=== PATIENT | female | born 1970 | race Caucasian/White ===

== ENCOUNTER → 2022-10-17 09:44 | Outpatient (BNVA) | payer MEDICARE, MEDICAID, SELFPAY | PROVIDERS: PCP Nurse Practitioner Family; Visit Provider Nurse Practitioner Family | DX: G43.109 Migraine with aura, not intractable, without status migrainosus (principal); G43.119 Migraine with aura, intractable, without status migrainosus; D49.7 Neoplasm of unspecified behavior of endocrine glands and other parts of nervous system | CPT/HCPCS: 99202 ==

== ENCOUNTER → 2022-12-27 10:25 | Outpatient (BNVA) | payer MEDICARE, MEDICAID, SELFPAY | PROVIDERS: PCP Nurse Practitioner Family; Visit Provider Nurse Practitioner Family | DX: G43.109 Migraine with aura, not intractable, without status migrainosus (principal) | CPT/HCPCS: 99212 ==

== ENCOUNTER → 2023-02-04 09:45 | Outpatient (BNVA) | payer MEDICARE, MEDICAID, SELFPAY | PROVIDERS: PCP Nurse Practitioner Family; Visit Provider Psychiatry & Neurology Neurology | DX: G43.709 Chronic migraine without aura, not intractable, without status migrainosus (principal) | CPT/HCPCS: 64615; 99211; J0585 ==

== ENCOUNTER 2023-06-04 14:05 | Outpatient (AMB) | payer MEDICARE, MEDICAID, SELFPAY ==
--- NOTE | 2023-06-04 13:59 | MHC.OFFVIS ---
Intake Vital Signs 06/04/23 14:00 Height 5 ft 2 in Weight 140 lb 2 oz BMI 25.6 BP 120/78 Blood Pressure Location Lt brachial Position Sitting Respiration 16 Pulse 67 Pulse Source Pulse Oximeter Pulse Oximetry (%) 98 Intake Visit Reasons: Botox-confirmed Intake Note: Patient presents to office for Botox injections. Allergies cephalexin [From Keflex] Allergy (Intermediate, Verified 06/04/23 13:59) Fever etodolac Allergy (Unknown, Verified 06/04/23 13:59) Unknown iodine Allergy (Unknown, Verified 06/04/23 13:59) Unknown povidone-iodine [From Betadine] Allergy (Unknown, Verified 06/04/23 13:59) Rash Medication List - Last Reconciled 06/04/23 by Lizzette Diaz MD jjdcwnc-ovqkuviillgip-umfpuopk 250-250-65 mg (Excedrin Migraine) 2 tabs PO Q6H PRN ksihnfwqdm-xvcvxht-xmljvioa 50-325-40 mg 2 caps PO Q4H PRN cholecalciferol (vitamin D3) 250 mcg PO DAILY diphenoxylate-atropine 2.5-0.025 mg (Lomotil) 1 tab PO QID PRN famotidine 20 mg PO DAILY fluoxetine 20 mg PO DAILY ibuprofen 800 mg PO TID PRN naproxen sodium 440 mg (2 x 220 mg) PO Q12H PRN 30 days onabotulinumtoxinA (Botox) 155 units IM ONCE 12 weeks riboflavin (vitamin B2) 400 mg PO DAILY 30 days valacyclovir 500 mg PO DAILY zolpidem 5 mg PO BEDTIME PRN HPI HPI Comments History of Present Illness Details ? 53y/o female comes for treatment of migraines with botox.He rlast botox tretament was [address] Greco.Prior to him she was seeing Dr. Lipscomb. ??? Most frequent reported adverse reactions following injection of botox for chronic migraine include neck pain (9%), headache(5%), eyelid ptosis(4%), migraine(4%), muscular weakness(4%), musculuskeletal stiffness(4%), bronchitis(3%), injection site pain (3%), musculoskeletal pain(3%), myalgia(3%), facial paresis(2%), HTN(2%) and muscle spasms(2%) were discussed in detail. ??? Botulinum toxin typeA 200units Lot no [id number] expiration sep 2025 was diluted with 4 cc of normal saline . ??? Muscles injected- ??? Frontalis 4 sites ??? Procerus 1 site ??? Customer Service Analyst- 2 sites ??? Temporalis- 8 sites ??? Occipitalis- 6 sites ??? Cervical paraspinals- 4 sites ??? Trapezius- 6 sites- ??? 5 units each in 31 site ??? Total use- 155units ??? Discarded-45units [facility] Medical History Chronic migraine without aura Hyperprolactinemia IBS (irritable bowel syndrome) Ovarian cyst Syncope Herniated lumbar disc without myelopathy Palpitations Fibromyalgia Depression Herpetic gingivostomatitis GERD (gastroesophageal reflux disease) Surgical History H/O laparoscopy History of section Family History Father Thyroid cancer Hypertension Glaucoma Mother Endometrial cancer Kidney stones Hypertension Fibromyalgia Sister Kidney stones Acute Crohn's disease Paternal Grandmother Heart disease Maternal Grandmother Heart disease Diabetes Social History Alcohol intake: never Patient Tobacco Use Status: Never used Tobacco Physical Exam Vital Signs: Last Vital Signs Pulse 67 06/04/23 14:00 Resp 16 06/04/23 14:00 BP 120/78 06/04/23 14:00 Pulse Ox 98 06/04/23 14:00 BMI result Body Mass Index 25.6 Const General: cooperative and no acute distress Orientation/consciousness: patient oriented x3 HEENT Head: Yes normocephalic Resp Effort & Inspection: normal respiratory effort and able to speak in complete sentences Neuro General: patient oriented x3, gait normal and CN's II-XI intact bilaterally Cognition (Neuro): normal cognition Motor exam (neuro): 5/5 motor strength present throughout Office Procedures Botulinum toxin Injection 88949 - Migraine Procedure code (CPT) selection complete Office Meds onabotulinumtoxinA 200 unit solution for injection Performing Provider: Lizzette Diaz MD [place] [facility] [place] [facility] Administered by: Lizzette Diaz MD on 06/04/23 15:08 Dose Route Admin Location Dispensed Lot Number Expiration Date [facility] Instructional Manager 200 unit subcut 200 units [id number] 09/19/25 9288-8248-76 ALLERGAN/BOTOX Comments: see hpi Assessment & Plan Assessment & Plan (1) Chronic migraine without aura: Code(s): G43.709 - Chronic migraine without aura, not intractable, without status migrainosus Plan Patient tolerated the procedure well she will call with any side effects Orders: Orders AMB Botulinum toxin Injection - Patient Supplied Today G43.709 - Chronic migraine without aura, not intractable, without status migrainosus Coding Level of Care Code Est Pt Level 1 (76247) Diagnoses Chronic migraine without aura G43.709 CPT Codes Botox Injection - Botox 3: 64745 - Migraine ([id number])
[2023-06-04 14:00] VITALS: BP 120/78; PULSE 67; RESP 16; O2SAT 98; BMI 25.6
== END 2023-06-04 15:03 | disposition home or self-care (01) ==
PROVIDERS: PCP Nurse Practitioner Family; Visit Provider Psychiatry & Neurology Neurology
DX: G43.709 Chronic migraine without aura, not intractable, without status migrainosus (principal)
CPT/HCPCS: 64615

== ENCOUNTER → 2023-06-04 14:05 | Outpatient (BNVA) | payer MEDICARE, MEDICAID, SELFPAY | PROVIDERS: PCP Nurse Practitioner Family; Visit Provider Psychiatry & Neurology Neurology | DX: G43.709 Chronic migraine without aura, not intractable, without status migrainosus (principal); M51.26 Other intervertebral disc displacement, lumbar region; M79.7 Fibromyalgia | CPT/HCPCS: 64615; 99211; J0585 ==

== ENCOUNTER 2023-09-16 12:37 | Outpatient (AMB) | payer MEDICARE, MEDICAID, SELFPAY ==
--- NOTE | 2023-09-16 12:39 | MHC.OFFVIS ---
Intake Vital Signs 09/16/23 12:43 Height 5 ft 2 in Weight 134 lb 7 oz BMI 24.6 BP 124/70 Blood Pressure Location Rt brachial Position Sitting Respiration 16 Pulse 65 Pulse Source Pulse Oximeter Pulse Oximetry (%) 98 Oxygen Delivery Method Room Air Intake Visit Reasons: Botox-LVM Intake Note: Pt presents to the office for Botox injections. Painting Worker Required: No Allergies cephalexin [From Keflex] Allergy (Intermediate, Verified 09/16/23 12:42) Fever etodolac Allergy (Unknown, Verified 09/16/23 12:42) Unknown iodine Allergy (Unknown, Verified 09/16/23 12:42) Unknown povidone-iodine [From Betadine] Allergy (Unknown, Verified 09/16/23 12:42) Rash Medication List - Last Reconciled 09/16/23 by Lizzette Diaz MD tcbiyqc-vspcxdtfyvhqs-puqlvcjk 250-250-65 mg (Excedrin Migraine) 2 tabs PO Q6H PRN wqtdcqhdnp-uttzncc-kbtcootb 50-325-40 mg 1-2 caps q 8hrs as needed for headaches orally PRN; do not exceed 3 doses per 24 hrs cholecalciferol (vitamin D3) 250 mcg PO DAILY diphenoxylate-atropine 2.5-0.025 mg (Lomotil) 1 tab PO QID PRN famotidine 20 mg PO DAILY fluoxetine 20 mg PO DAILY ibuprofen 800 mg PO TID PRN naproxen sodium 440 mg (2 x 220 mg) PO Q12H PRN 30 days onabotulinumtoxinA (Botox) 155 units IM ONCE 12 weeks riboflavin (vitamin B2) 400 mg PO DAILY 30 days valacyclovir 500 mg PO DAILY zolpidem 5 mg PO BEDTIME PRN HPI HPI Comments History of Present Illness Details ? 53y/o female comes for treatment of migraines with botox.He rlast botox tretament was [address] Greco.Prior to him she was seeing Dr. Lipscomb .How many migraine days prior to botox- 25-30 days How long do the migraines last 1-2 days Intensity of migraine 8-10/10 ER visits related to migraine 2-3 Effectiveness of botox from last two treatment(s) How many migraine days since receiving treatment:3-5 Change? in intensity of migraine?decreased Change in frequency of migraine?decreased Change in use of acute medication for migraine?decreased Change in quality of life?better ER visits related to migraine?0 Have at least three months elapsed since last treatment (Last botox date - frequency of injections)06/04/23 ??? Most frequent reported adverse reactions following injection of botox for chronic migraine include neck pain (9%), headache(5%), eyelid ptosis(4%), migraine(4%), muscular weakness(4%), musculuskeletal stiffness(4%), bronchitis(3%), injection site pain (3%), musculoskeletal pain(3%), myalgia(3%), facial paresis(2%), HTN(2%) and muscle spasms(2%) were discussed in detail. ??? Botulinum toxin typeA 200units Lot no [id number] expiration December 2025 was diluted with 4 cc of normal saline . ??? Muscles injected- ??? Frontalis 4 sites ??? Procerus 1 site ??? Gravedigger- 2 sites ??? Temporalis- 8 sites ??? Occipitalis- 6 sites ??? Cervical paraspinals- 4 sites ??? Trapezius- 6 sites- ??? 5 units each in 31 site ??? Total use- 155units ??? Discarded-45units [facility] Medical History Chronic migraine without aura Hyperprolactinemia IBS (irritable bowel syndrome) Ovarian cyst Syncope Herniated lumbar disc without myelopathy Palpitations Fibromyalgia Depression Herpetic gingivostomatitis GERD (gastroesophageal reflux disease) Surgical History H/O laparoscopy History of section Family History Father Thyroid cancer Hypertension Glaucoma Mother Endometrial cancer Kidney stones Hypertension Fibromyalgia Sister Kidney stones Acute Crohn's disease Paternal Grandmother Heart disease Maternal Grandmother Heart disease Diabetes Social History Alcohol intake: never Patient Tobacco Use Status: Never used Tobacco Physical Exam Vital Signs: Last Vital Signs Pulse 65 09/16/23 12:43 Resp 16 09/16/23 12:43 BP 124/70 09/16/23 12:43 Pulse Ox 98 09/16/23 12:43 Oxygen Delivery Method Room Air 09/16/23 12:43 BMI result Body Mass Index 24.6 Const General: cooperative and no acute distress Orientation/consciousness: patient oriented x3 HEENT Head: Yes normocephalic Resp Effort & Inspection: normal respiratory effort and able to speak in complete sentences Neuro General: patient oriented x3, gait normal and CN's II-XI intact bilaterally Cognition (Neuro): normal cognition Motor exam (neuro): 5/5 motor strength present throughout Office Procedures Botulinum toxin Injection 77856 - Migraine Procedure code (CPT) selection complete Office Meds onabotulinumtoxinA 200 unit solution for injection Performing Provider: Lizzette Diaz MD Performing Location[place] [facility] [place] [facility] Administered by: Lizzette Diaz MD on 09/16/23 15:40 Dose Route Admin Location Dispensed Lot Number Expiration Date [facility] Supply Assistant 155 unit IM 200 units [id number] 12/17/25 0190-0739-23 ALLERGAN/BOTOX Comments: see HPI Assessment & Plan Assessment & Plan (1) Chronic migraine without aura: Code(s): G43.709 - Chronic migraine without aura, not intractable, without status migrainosus Plan Patient tolerated the procedure well she will call with any side effects Orders: Orders AMB Botulinum toxin Injection Today G43.709 - Chronic migraine without aura, not intractable, without status migrainosus Medications: Changed From fmfdvqokqk-hibemnt-vupwgcda 50-325-40 mg do not exceed 3 doses per 24 hrs 2 caps PO Q4H PRN To elfpmqilin-gwlbudn-kspfwrsk 50-325-40 mg 1-2 caps q 8hrs as needed for headaches orally PRN; do not exceed 3 doses per 24 hrs 15 caps 3RF migraine headache Coding Level of Care Code Est Pt Level 1 (18645) Diagnoses Chronic migraine without aura G43.709 CPT Codes Botox Injection - Botox 3: 67691 - Migraine ([id number])
[2023-09-16 12:43] VITALS: BP 124/70; PULSE 65; RESP 16; O2SAT 98; BMI 24.6
== END 2023-09-16 13:49 | disposition home or self-care (01) ==
PROVIDERS: PCP Nurse Practitioner Family; Visit Provider Psychiatry & Neurology Neurology
DX: G43.709 Chronic migraine without aura, not intractable, without status migrainosus (principal)
CPT/HCPCS: 64615

== ENCOUNTER → 2023-09-16 12:37 | Outpatient (BNVA) | payer MEDICARE, MEDICAID, SELFPAY | PROVIDERS: PCP Nurse Practitioner Family; Visit Provider Psychiatry & Neurology Neurology | DX: G43.709 Chronic migraine without aura, not intractable, without status migrainosus (principal) | CPT/HCPCS: 64615; 99211; J0585 ==

== ENCOUNTER → 2023-10-09 09:12 | Outpatient (BNVA) | payer MEDICARE, MEDICAID, SELFPAY | PROVIDERS: PCP Nurse Practitioner Family; Visit Provider Nurse Practitioner Family ==

== ENCOUNTER 2023-10-09 09:19 | Outpatient (AMB) | payer MEDICARE, MEDICAID, SELFPAY ==
--- NOTE | 2023-10-09 09:12 | MHC.OFFVIS ---
Intake Intake Visit Reasons: 3m follow up migraine - CONF Intake Note: Patient presents for 3 month follow up migraines Allergies cephalexin [From Keflex] Allergy (Intermediate, Verified 09/16/23 12:42) Fever etodolac Allergy (Unknown, Verified 09/16/23 12:42) Unknown iodine Allergy (Unknown, Verified 09/16/23 12:42) Unknown povidone-iodine [From Betadine] Allergy (Unknown, Verified 09/16/23 12:42) Rash HPI HPI Comments History of Present Illness Details 53-yr-old female presents for f/u televideo visit via [employer]. Pt denies any significant interval medical changes. Pt reports that the Botox is helpful for her migraine. However, at the end of her Botox cycle, she will have breakthrough migraine, which can last 4-5 days, some migraines are a/w visual aura . She does have milder breakthrough headaches at least 4 times per month not a/w aura. She is currently using Fiorinal w/wo alternating w/ Excedrin, which may help her to function, and sometimes just has to ride it out and has to lay down in a dark room. Baseline migraine characteristics: Aura- at times, Visual lights Mod-Severe, Left or right sided a/w photophobia, phonophobia, osmophobia, nausea, allodynia, fatigue PFSH Medical History Chronic migraine without aura Hyperprolactinemia IBS (irritable bowel syndrome) Ovarian cyst Syncope Herniated lumbar disc without myelopathy Palpitations Fibromyalgia Depression Herpetic gingivostomatitis GERD (gastroesophageal reflux disease) Surgical History H/O laparoscopy History of section Family History Father Thyroid cancer Hypertension Glaucoma Mother Endometrial cancer Kidney stones Hypertension Fibromyalgia Sister Kidney stones Acute Crohn's disease Paternal Grandmother Heart disease Maternal Grandmother Heart disease Diabetes Social History Alcohol intake: never Patient Tobacco Use Status: Never used Tobacco Physical Exam Const General: cooperative and no acute distress Orientation/consciousness: patient oriented x3 Resp Effort & Inspection: normal respiratory effort and able to speak in complete sentences Neuro General: patient oriented x3 Cognition (Neuro): normal cognition Psych Appearance: grossly normal Mental Status: mental status grossly normal Speech and movement: Normal speech and movement present Affect: normal affect Attitude: cooperative Assessment & Plan Assessment & Plan (1) Chronic migraine without aura: Code(s): G43.709 - Chronic migraine without aura, not intractable, without status migrainosus (2) Migraine with aura, intractable, without status migrainosus: Code(s): G43.119 - Migraine with aura, intractable, without status migrainosus Plan For overall headache management: Continue to optimize good self-care, including but not limited to maintaining a healthy diet, adequate fluid intake, adequate sleep, and engaging in regular physical activity. For headache triggers: Track headaches, especially after any treatment regimen changes. Light sensitivity tips: Continue green light therapy.. ? For acute headache treatment: Start Nurtec ODT 75mg qd prn. Take Nurtec ODT 75mg qod starting 10 days prior to next Botox injection. Advised to hold Fiorinal to be able to fully assess Nurtec tolerenace and effectiveness, if ineffective after several trials, may resume Fiorinal and Excedrin sparingly. Previous acute migraine medication trials: Sumatriptan- caused brain fog, Zolmitriptan- caused spaciness. Naratriptan 2.5 mg prn- caused her to feel weird. Acute migraine medication contraindications: None at this time ? For headache prevention medication: Continue Botox 155 units IM q 3 months for chronic migraine. May try taking Naproxen 440mg q 12hrs or Ibuprofen 600mg tid prn during last 1-2 weeks of Botox inj cycle. Previous migraine prevention medication trials: Amitriptyline- not tolerated. Propranolol- not tolerated. topiramate- not tolerated. Aimovig- had some effect but had end of cycle wearing off- did take w/ Botox- was not more effective together. Riboflavin 400mg qam- ineffective Migraine prevention medication contraindications: None at this time. f/u in 3 months or sooner prn. Medications: New rimegepant (Nurtec ODT) 75 mg PO ONCE 30 days PRN 16 tabs 3RF migraine headache MDD 1 tab Telehealth Telehealth Location of provider rendering services: practice address Location of patient: address on file Patient Identification confirmed using: Name, : Yes Telehealth method: voice only Patient verbally consented to treatment: Yes Patient verbally consented to billing insurance company: Yes Patient informed of any privacy concerns related to visit: Yes Minutes spent on Phone/Video with Pt.: 21 Coding Level of Care Code Tele Est Pt Level 4 (02434) Diagnoses Chronic migraine without aura G43.709 Migraine with aura, intractable, without status migrainosus G43.119
--- OUTSIDE RECORDS SUMMARY | 2023-10-09 09:13 | XMS_ITS | Continuity of Care Document ---
Author Name Unknown Organization [facility] Address [address] [place] [address]- Care Team Providers Care Government Relations Director Name Role Phone Not on Staff, PCP Primary Care Physician Unavail able Encounter [facility] [place] Date(s): 06/14/23 - 07/14/23 [facility] [address], [place] [address] Attending Physician: Ashkan Meza Admitting Physician: Ashkan Meza Referring Physician: trAshkan Allergies, Adverse Reactions, Alerts Substance Reaction Severity Status iodine topical Active Keflex Rash Persistent Severe Active Immunizations Given and Recorded Vaccine Date Status Refusal Reason Influenza Virus Vaccine (oldterm) 03/29/20 Recorde d zoster vaccine, inactivated 03/29/20 Recorded tetanus/diphtheria/pertussis, acel(Tdap) 04/02/11 Given Medications Famotidine 0 Refills, Maintenance, 11/18/14 9:49:50 Start Date: 11/18/14 Status: Ordered Fiorinal 325 mg-50 mg-40 mg oral capsule 2 capsule, By Mouth, Every 6 hours, 0 Refills, Maintenance, 11/18/14 9:50:44 Start Date: 11/18/14 Status: Ordered Lomotil Tablet By Mouth, 4 times a day, Refills 0, Maintenance, 12/16/18 10:11:01 EDT Start Date: 12/16/18 Status: Ordered Vitamin D 99034 iu oral capsule 50,000 International_Units, By Mouth, Daily, Refills 0, Maintenance, 06/15/21 8:15:00 EDT, Partial fill upon patient request if the prescription is for a schedule II opioid drug. Start Date: 06/15/21 Status: Ordered Problem List Condition Confirmation Course Effective Dates Status Health St atus Informant Benign tumor of pituitary gland Confirmed Active Headache, migraine Confirmed Active Confirmed Active Confirmed Active , c/s 2, 1 Confirmed Active Social History Social History Type Response Smoking Status Never smoker entered on: 11/18/14 Sex Patient Care team information Care Team Personnel Name: Not on Staff, PCP Position: [facility] Physician (General Medicine) Member Role: PCP Name: Naomi Vo MA Position: [facility] Outreach Member Role: Lifetime Consulting Physician Care Team Related Persons Name: JAYY WEATHERS Address: [place] [address] Name: BAYRON WEATHERS Address: [address] [place] [address] Name: BAYRON WEATHERS Address: [address] [place] [address] Name: CHINA NGUYEN Address: home [address] [place], [place] Name: AURA MATTHEWS Address: [place] [address] [place], [place]
== END 2023-10-09 10:00 ==
PROVIDERS: PCP Nurse Practitioner Family; Visit Provider Nurse Practitioner Family
DX: G43.709 Chronic migraine without aura, not intractable, without status migrainosus (principal); G43.119 Migraine with aura, intractable, without status migrainosus
CPT/HCPCS: 99443

== ENCOUNTER 2023-12-26 07:53 | Outpatient (AMB) | payer MEDICARE, MEDICAID, SELFPAY ==
--- NOTE | 2023-12-26 07:59 | MHC.OFFVIS ---
Vital Signs 12/26/23 08:01 Height 5 ft 2 in Weight 132 lb BMI 24.1 BP 112/58 L Blood Pressure Location Rt brachial Position Sitting Respiration 16 Pulse 60 Pulse Source Pulse Oximeter Pulse Oximetry (%) 100 Oxygen Delivery Method Room Air Intake Visit Reasons: Botox - Confirmed Intake Note: Pt presents to the office for Botox injections. Telecommunications Facility Examiner Required: No Allergies cephalexin [From Keflex] Allergy (Intermediate, Verified 12/26/23 08:00) Fever etodolac Allergy (Unknown, Verified 12/26/23 08:00) Unknown iodine Allergy (Unknown, Verified 12/26/23 08:00) Unknown povidone-iodine [From Betadine] Allergy (Unknown, Verified 12/26/23 08:00) Rash Medication List - Last Reconciled 12/26/23 by Lizzette Diaz MD kgbfjji-yndnajsruhaom-vuxxsqtj 250-250-65 mg (Excedrin Migraine) 2 tabs PO Q6H PRN fhceeoznqr-qfmhtfk-priwnfzn 50-325-40 mg 1-2 caps q 8hrs as needed for headaches orally PRN; do not exceed 3 doses per 24 hrs cholecalciferol (vitamin D3) 250 mcg PO DAILY diphenoxylate-atropine 2.5-0.025 mg (Lomotil) 1 tab PO QID PRN famotidine 20 mg PO DAILY fluoxetine 20 mg PO DAILY ibuprofen 800 mg PO TID PRN naproxen sodium 440 mg (2 x 220 mg) PO Q12H PRN 30 days onabotulinumtoxinA (Botox) 155 units IM ONCE 12 weeks riboflavin (vitamin B2) 400 mg PO DAILY 30 days rimegepant (Nurtec ODT) 75 mg PO ONCE PRN 30 days MDD 1 tab valacyclovir 500 mg PO DAILY zolpidem 5 mg PO BEDTIME PRN HPI Comments Details: ? 53y/o female comes for treatment of migraines with botox. .How many migraine days prior to botox- 25-30 days How long do the migraines last 1-2 days Intensity of migraine 8-05/28 ER visits related to migraine 2-3 Effectiveness of botox from last two treatment(s) How many migraine days since receiving treatment:3-5 Change? in intensity of migraine?decreased Change in frequency of migraine?decreased Change in use of acute medication for migraine?decreased Change in quality of life?better ER visits related to migraine?0 Have at least three months elapsed since last treatment (Last botox date - frequency of injections)09/11 ??? Most frequent reported adverse reactions following injection of botox for chronic migraine include neck pain (9%), headache(5%), eyelid ptosis(4%), migraine(4%), muscular weakness(4%), musculuskeletal stiffness(4%), bronchitis(3%), injection site pain (3%), musculoskeletal pain(3%), myalgia(3%), facial paresis(2%), HTN(2%) and muscle spasms(2%) were discussed in detail. ??? Botulinum toxin typeA 200units Lot no [id number] expiration January 2026 was diluted with 4 cc of normal saline . ??? Muscles injected- ??? Frontalis 4 sites ??? Procerus 1 site ??? Supervisor [employer]- 2 sites ??? Temporalis- 8 sites ??? Occipitalis- 6 sites ??? Cervical paraspinals- 4 sites ??? Trapezius- 6 sites- ??? 5 units each in 31 site ??? Total use- 155units ??? Discarded-45units [facility] Medical History Chronic migraine without aura Hyperprolactinemia IBS (irritable bowel syndrome) Ovarian cyst Syncope Herniated lumbar disc without myelopathy Palpitations Fibromyalgia Depression Herpetic gingivostomatitis GERD (gastroesophageal reflux disease) Surgical History H/O laparoscopy History of section Family History Father Thyroid cancer Hypertension Glaucoma Mother Endometrial cancer Kidney stones Hypertension Fibromyalgia Sister Kidney stones Acute Crohn's disease Paternal Grandmother Heart disease Maternal Grandmother Heart disease Diabetes Social History Alcohol intake: never Patient Tobacco Use Status: Never used Tobacco Physical Exam Vital Signs: Last Vital Signs Pulse 60 12/26/23 08:01 Resp 16 12/26/23 08:01 BP 112/58 L 12/26/23 08:01 Pulse Ox 100 12/26/23 08:01 Oxygen Delivery Method Room Air 12/26/23 08:01 BMI result Body Mass Index 24.1 Const General: cooperative and no acute distress Orientation/consciousness: patient oriented x3 HEENT Head: Yes normocephalic Resp Effort & Inspection: normal respiratory effort and able to speak in complete sentences Neuro General: patient oriented x3, gait normal and CN's II-XI intact bilaterally Cognition (Neuro): normal cognition Motor exam (neuro): 5/5 motor strength present throughout Office Procedures Botulinum toxin Injection 64499 - Migraine Procedure code (CPT) selection complete Office Meds onabotulinumtoxinA 200 unit solution for injection Performing Provider: Lizzette Diaz MD [place] [facility] [place] [facility] Administered by: Lizzette Diaz MD on 12/26/23 09:13 Dose Route Admin Location Dispensed Lot Number Expiration Date [facility] Surgical Dressing Maker 155 unit IM 200 units [id number] 01/17/26 0210-2186-88 ALLERGAN/BOTOX Comments: see hpi Assessment & Plan Assessment & Plan (1) Chronic migraine without aura: Code(s): G43.709 - Chronic migraine without aura, not intractable, without status migrainosus Category: Medical Plan Patient tolerated the procedure well she will call with any side effects Orders: Orders AMB Botulinum toxin Injection Today G43.709 - Chronic migraine without aura, not intractable, without status migrainosus Medications: New onabotulinumtoxinA 200 units IM ONCE 1 ea 0RF migraine G43.709 - Chronic migraine without aura, not intractable, without status migrainosus Coding Level of Care Code Est Pt Level 1 (31637) Diagnoses Chronic migraine without aura G43.709 CPT Codes Botox Injection - Botox 3: 39872 - Migraine ([id number])
[2023-12-26 08:01] VITALS: BP 112/58; PULSE 60; RESP 16; O2SAT 100; BMI 24.1
== END 2023-12-26 08:27 | disposition home or self-care (01) ==
PROVIDERS: PCP Nurse Practitioner Family; Visit Provider Psychiatry & Neurology Neurology
DX: G43.709 Chronic migraine without aura, not intractable, without status migrainosus (principal)
CPT/HCPCS: 64615

== ENCOUNTER → 2023-12-26 07:53 | Outpatient (BNVA) | payer MEDICARE, MEDICAID, SELFPAY | PROVIDERS: PCP Nurse Practitioner Family; Visit Provider Psychiatry & Neurology Neurology | DX: G43.709 Chronic migraine without aura, not intractable, without status migrainosus (principal) | CPT/HCPCS: 64615; 99211; J0585 ==

== ENCOUNTER 2024-03-17 07:25 | Outpatient (AMB) | payer MEDICARE, MEDICAID, SELFPAY ==
--- NOTE | 2024-03-17 07:27 | A.OFFVIS_ITS ---
Vital Signs 03/17/24 07:28 Height 5 ft 2 in Weight 132 lb BMI 24.1 BP 130/80 Blood Pressure Location Rt brachial Position Sitting Respiration 16 Pulse 65 Pulse Source Pulse Oximeter Pulse Oximetry (%) 98 Oxygen Delivery Method Room Air Intake Visit Reasons: Botox-CONF Intake Note: Pt presents to the office for Botox injections for chronic migraines. Malt Specifications Control Assistant Required: No Allergies cephalexin [From Keflex] Allergy (Intermediate, Verified 03/17/24 07:28) Fever etodolac Allergy (Unknown, Verified 03/17/24 07:28) Unknown iodine Allergy (Unknown, Verified 03/17/24 07:28) Unknown povidone-iodine [From Betadine] Allergy (Unknown, Verified 03/17/24 07:28) Rash Medication List - Last Reconciled 03/17/24 by Lizzette Diaz MD yhmusow-slrkgzvzfbcyo-ylfaqjko 250-250-65 mg (Excedrin Migraine) 2 tabs PO Q6H PRN ypscgtybnu-fpwnoxh-uhqbiloq 50-325-40 mg 1-2 caps q 8hrs as needed for headaches orally PRN; do not exceed 3 doses per 24 hrs cholecalciferol (vitamin D3) 250 mcg PO DAILY diphenoxylate-atropine 2.5-0.025 mg (Lomotil) 1 tab PO QID PRN famotidine 20 mg PO DAILY fluoxetine 20 mg PO DAILY ibuprofen 800 mg PO TID PRN naproxen sodium 440 mg (2 x 220 mg) PO Q12H PRN 30 days onabotulinumtoxinA (Botox) 155 units IM ONCE 12 weeks riboflavin (vitamin B2) 400 mg PO DAILY 30 days rimegepant (Nurtec ODT) 75 mg PO ONCE PRN 30 days MDD 1 tab valacyclovir 500 mg PO DAILY zolpidem 5 mg PO BEDTIME PRN HPI Comments Details: ? 54y/o female comes for treatment of migraines with botox. .How many migraine days prior to botox- 25-30 days How long do the migraines last 1-2 days Intensity of migraine 8-05/28 ER visits related to migraine 2-3 Effectiveness of botox from last two treatment(s) How many migraine days since receiving treatment:3-5 Change? in intensity of migraine?decreased Change in frequency of migraine?decreased Change in use of acute medication for migraine?decreased Change in quality of life?better ER visits related to migraine?0 Have at least three months elapsed since last treatment (Last botox date - frequency of injections)12/10 ??? Most frequent reported adverse reactions following injection of botox for chronic migraine include neck pain (9%), headache(5%), eyelid ptosis(4%), migraine(4%), muscular weakness(4%), musculuskeletal stiffness(4%), bronchitis(3%), injection site pain (3%), musculoskeletal pain(3%), myalgia(3%), facial paresis(2%), HTN(2%) and muscle spasms(2%) were discussed in detail. ??? Botulinum toxin typeA 200units Lot no [id number] expiration Jul 2026 was diluted with 4 cc of normal saline . ??? Muscles injected- ??? Frontalis 4 sites ??? Procerus 1 site ??? Survey Director- 2 sites ??? Temporalis- 8 sites ??? Occipitalis- 6 sites ??? Cervical paraspinals- 4 sites ??? Trapezius- 6 sites- ??? 5 units each in 31 site ??? Total use- 155units ??? Discarded-45units [facility] Medical History Chronic migraine without aura Hyperprolactinemia IBS (irritable bowel syndrome) Ovarian cyst Syncope Herniated lumbar disc without myelopathy Palpitations Fibromyalgia Depression Herpetic gingivostomatitis GERD (gastroesophageal reflux disease) Surgical History H/O laparoscopy History of section Family History Father Thyroid cancer Hypertension Glaucoma Mother Endometrial cancer Kidney stones Hypertension Fibromyalgia Sister Kidney stones Acute Crohn's disease Paternal Grandmother Heart disease Maternal Grandmother Heart disease Diabetes Social History Alcohol intake: never Patient Tobacco Use Status: Never used Tobacco Physical Exam Vital Signs: Last Vital Signs Pulse 65 03/17/24 07:28 Resp 16 03/17/24 07:28 BP 130/80 03/17/24 07:28 Pulse Ox 98 03/17/24 07:28 Oxygen Delivery Method Room Air 03/17/24 07:28 BMI result Body Mass Index 24.1 Const General: cooperative and no acute distress Orientation/consciousness: patient oriented x3 HEENT Head: Yes normocephalic Resp Effort & Inspection: normal respiratory effort and able to speak in complete sentences Neuro General: patient oriented x3, gait normal and CN's II-XI intact bilaterally Cognition (Neuro): normal cognition Motor exam (neuro): 5/5 motor strength present throughout Office Procedures Botulinum toxin Injection 15139 - Migraine Procedure code (CPT) selection complete Office Meds onabotulinumtoxinA 200 unit solution for injection Performing Provider: Lizzette Diaz MD Performing Location: [facility] Administered by: Lizzette Diaz MD on 03/17/24 08:12 Dose Route Admin Location Dispensed Lot Number Expiration Date NDC Statistical Consultant 200 unit IM 200 units [id number] 07/19/26 4330-4987-94 ALLERGAN/BOTOX Comments: see HPI Assessment & Plan Assessment & Plan (1) Chronic migraine without aura, intractable, without status migrainosus: Code(s): G43.719 - Chronic migraine without aura, intractable, without status migrainosus Category: Medical Plan Patient tolerated the procedure well she will call with any side effects Orders: Orders AMB Botulinum toxin Injection Today G43.719 - Chronic migraine without aura, intractable, without status migrainosus Medications: New onabotulinumtoxinA 200 units IM ONCE 1 ea 0RF migraine G43.719 - Chronic migraine without aura, intractable, without status migrainosus Coding Level of Care Code Est Pt Level 1 (25430) Diagnoses Chronic migraine without aura, intractable, without status migrainosus G43.719 CPT Codes Botox Injection - Botox 3: 95095 - Migraine ([id number])
[2024-03-17 07:28] VITALS: BP 130/80; PULSE 65; RESP 16; O2SAT 98; BMI 24.1
== END 2024-03-17 08:06 | disposition home or self-care (01) ==
PROVIDERS: PCP Nurse Practitioner Family; Visit Provider Psychiatry & Neurology Neurology
DX: G43.719 Chronic migraine without aura, intractable, without status migrainosus (principal)
CPT/HCPCS: 64615

== ENCOUNTER → 2024-03-17 07:25 | Outpatient (BNVA) | payer MEDICARE, MEDICAID, SELFPAY | PROVIDERS: PCP Nurse Practitioner Family; Visit Provider Psychiatry & Neurology Neurology | DX: G43.719 Chronic migraine without aura, intractable, without status migrainosus (principal) | CPT/HCPCS: 64615; 99211; J0585 ==

== ENCOUNTER 2024-06-25 07:19 | Outpatient (AMB) | payer MEDICARE, MEDICAID, SELFPAY ==
--- NOTE | 2024-06-25 07:37 | A.OFFVIS_ITS ---
Intake Visit Reasons: 3 mon follow up Intake Note: Patient presents for 3 month follow uo Allergies cephalexin [From Keflex] Allergy (Intermediate, Verified 06/25/24 07:38) Fever etodolac Allergy (Unknown, Verified 06/25/24 07:38) Unknown iodine Allergy (Unknown, Verified 06/25/24 07:38) Unknown povidone-iodine [From Betadine] Allergy (Unknown, Verified 06/25/24 07:38) Rash Medication List - Last Reconciled 06/25/24 by Lizzette Diaz MD rtevdfc-enqxnpmiocybz-ldaakkfc 250-250-65 mg (Excedrin Migraine) 2 tabs PO Q6H PRN cvmqgonujt-idiqswz-euppvscv 50-325-40 mg 1-2 caps q 8hrs as needed for headaches orally PRN; do not exceed 3 doses per 24 hrs cholecalciferol (vitamin D3) 250 mcg PO DAILY diphenoxylate-atropine 2.5-0.025 mg (Lomotil) 1 tab PO QID PRN famotidine 20 mg PO DAILY fluoxetine 20 mg PO DAILY ibuprofen 800 mg PO TID PRN naproxen sodium 440 mg (2 x 220 mg) PO Q12H PRN 30 days onabotulinumtoxinA (Botox) 155 units IM ONCE 12 weeks riboflavin (vitamin B2) 400 mg PO DAILY 30 days rimegepant (Nurtec ODT) 75 mg PO ONCE PRN 30 days MDD 1 tab valacyclovir 500 mg PO DAILY zolpidem 5 mg PO BEDTIME PRN HPI Comments Details: ? 54y/o female comes for treatment of migraines with botox. .How many migraine days prior to botox- 25-30 days How long do the migraines last 1-2 days Intensity of migraine 8-05/28 ER visits related to migraine 2-3 Effectiveness of botox from last two treatment(s) How many migraine days since receiving treatment:3-5 Change? in intensity of migraine?decreased Change in frequency of migraine?decreased Change in use of acute medication for migraine?decreased Change in quality of life?better ER visits related to migraine?0 Have at least three months elapsed since last treatment (Last botox date - frequency of injections)03/11 ??? Most frequent reported adverse reactions following injection of botox for chronic migraine include neck pain (9%), headache(5%), eyelid ptosis(4%), migraine(4%), muscular weakness(4%), musculuskeletal stiffness(4%), bronchitis(3%), injection site pain (3%), musculoskeletal pain(3%), myalgia(3%), facial paresis(2%), HTN(2%) and muscle spasms(2%) were discussed in detail. ??? Botulinum toxin typeA 200units Lot no [id number] expiration Sep 2026 was diluted with 4 cc of normal saline . ??? Muscles injected- ??? Frontalis 4 sites ??? Procerus 1 site ??? Prop Sawyer- 2 sites ??? Temporalis- 8 sites ??? Occipitalis- 6 sites ??? Cervical paraspinals- 4 sites ??? Trapezius- 6 sites- ??? 5 units each in 31 site ??? Total use- 155units ??? Discarded-45units [facility] Medical History Chronic migraine without aura, intractable, without status migrainosus Chronic migraine without aura Hyperprolactinemia IBS (irritable bowel syndrome) Ovarian cyst Syncope Herniated lumbar disc without myelopathy Palpitations Fibromyalgia Depression Herpetic gingivostomatitis GERD (gastroesophageal reflux disease) Surgical History H/O laparoscopy History of section Family History Father Thyroid cancer Hypertension Glaucoma Mother Endometrial cancer Kidney stones Hypertension Fibromyalgia Sister Kidney stones Acute Crohn's disease Paternal Grandmother Heart disease Maternal Grandmother Heart disease Diabetes Social History Alcohol intake: never Patient Tobacco Use Status: Never used Tobacco Physical Exam Const General: cooperative and no acute distress Orientation/consciousness: patient oriented x3 HEENT Head: Yes normocephalic Resp Effort & Inspection: normal respiratory effort and able to speak in complete sentences Neuro General: patient oriented x3, gait normal and CN's II-XI intact bilaterally Cognition (Neuro): normal cognition Motor exam (neuro): 5/5 motor strength present throughout Office Procedures Botulinum toxin Injection 83407 - Migraine Procedure code (CPT) selection complete Office Meds onabotulinumtoxinA 200 unit solution for injection Performing Provider: Lizzette Diaz MD Performing Location: [facility] [place] [facility] Administered by: Lizzette Diaz MD on 06/25/24 08:05 Dose Route Admin Location Dispensed Lot Number Expiration Date NDC Clothing Presser 155 unit subcut 200 units [id number] 09/19/26 5306-4697-85 ALLERGAN/BOTOX Comments: see HPI Assessment & Plan Assessment & Plan (1) Chronic migraine without aura, intractable, without status migrainosus: Code(s): G43.719 - Chronic migraine without aura, intractable, without status migrainosus Category: Medical Plan Patient tolerated the procedure well she will call with any side effects Orders: Orders AMB Botulinum toxin Injection Today G43.719 - Chronic migraine without aura, intractable, without status migrainosus Medications: New onabotulinumtoxinA 200 units subcut ONCE 1 ea 0RF migraine G43.719 - Chronic migraine without aura, intractable, without status migrainosus Coding Level of Care Code Est Pt Level 1 (32994) Diagnoses Chronic migraine without aura, intractable, without status migrainosus G43.719 CPT Codes Botox Injection - Botox 3: 37457 - Migraine ([id number])
== END 2024-06-25 07:59 | disposition home or self-care (01) ==
LOC: HO.HSMS 07:19
PROVIDERS: PCP Nurse Practitioner Family; Visit Provider Psychiatry & Neurology Neurology
DX: G43.719 Chronic migraine without aura, intractable, without status migrainosus (principal)
CPT/HCPCS: 64615

== ENCOUNTER → 2024-06-25 07:19 | Outpatient (BNVA) | payer MEDICARE, MEDICAID, SELFPAY | PROVIDERS: PCP Nurse Practitioner Family; Visit Provider Psychiatry & Neurology Neurology | DX: G43.719 Chronic migraine without aura, intractable, without status migrainosus (principal) | CPT/HCPCS: 64615; 99211; J0585 ==

== ENCOUNTER 2024-10-20 07:25 | Outpatient (REF) | payer MEDICARE, MEDICAID, SELFPAY ==
[2024-10-20 09:03] LABS: MANUAL DIFF FLAG NO
--- OUTSIDE RECORDS SUMMARY | 2024-10-20 09:15 | XMS_ITS | Encounter Summary ---
Author Organization [employer] Address [address] [place] [address] 7t [place] [address] Care Team Providers Care Wage And Hour Investigator Name Role Phone Bianca Salazar Primary Care Provider +1 [phone] Encounter Details Date Type Department Care Team [...] Description 10/28/2024 2:00 PM EDT Office Visit [facility] MED[facility] [address] [place] [address] Bianca Salazar FNP [address] [place] [address] documented as of this encounter Visit Diagnoses Not on filedocumented in this encounter Care Teams Wage And Hour Investigator Relationship Specialty Start Date End Date Bianca Salazar FNP [address] [place] [address] PCP - General Family Medicine 07/20/22 documented as of this encounter
--- OUTSIDE RECORDS SUMMARY | 2024-10-20 09:15 | XMS_ITS | Encounter Summary ---
Author Organization [employer] Address [address] [place] [address] 7t [place] [address] Care Team Providers Care President Ceo & Founder Name Role Phone Bianca Salazar Primary Care Provider +1 -[phone] Encounter Details Date Type Department Care Team [...] Description 10/28/2024 2:00 PM EDT Office Visit [facility] MED[facility] [address] [place] [address] Bianca Salazar FNP [address] [place] [address] documented as of this encounter Visit Diagnoses Not on filedocumented in this encounter Care Teams President Ceo & Founder Relationship Specialty Start Date End Date Bianca Salazar FNP [address] [place] [address] PCP - General Family Medicine 07/20/22 documented as of this encounter
--- OUTSIDE RECORDS SUMMARY | 2024-10-20 09:15 | XMS_ITS | Encounter Summary ---
Author Organization [email or web address] Address [address] [place] [address] [address]t [place] [address] Care Team Providers Care Cigarette Filter Inspector Name Role Phone Bianca Salazar Primary Care Provider +1 -[phone] Encounter Details Date Type Department Care Team [...] Description 10/28/2024 2:00 PM EDT Office Visit [facility] MED[facility] [address] [place] [address] Bianca Salazar FNP [address] [place] [address] documented as of this encounter Visit Diagnoses Not on filedocumented in this encounter Care Teams Cigarette Filter Inspector Relationship Specialty Start Date End Date Bianca Salazar FNP [address] [place] [address] PCP - General Family Medicine 07/20/22 documented as of this encounter
--- OUTSIDE RECORDS SUMMARY | 2024-10-20 09:15 | XMS_ITS | Encounter Summary ---
Author Organization [employer] Address [address] [place] [address] 7t [place] [address] Care Team Providers Care Service Crew Supervisor Name Role Phone Bianca Salazar Primary Care Provider +1 -[phone] Encounter Details Date Type Department Care Team (Late st Contact Info) Description 04/24/2024 Orders Only [facility] [address] [place] [address] Bianca Salazar FNP [address] [place], [place] [id number] Scalp psoriasis Social History Tobacco Use Types [...] Description 10/28/2024 2:00 PM EDT Office Visit [facility] [address] [place] [address] Bianca Salazar FNP [address] [place] [address] documented as of this encounter Procedures Procedure Name Priority Date/Time Associated Diagnosis Comments AMB REFERRAL TO DERMATOLOGY Routine 11/26/2023 Scalp psoriasis documented in this encounter Results * Referral to Dermatology (11/26/2023) Bianca LYLES OUTPATIENT REFERRAL ORDER JOEL Final Result documented in this encounter Visit Diagnoses Diagnosis Scalp psoriasis Other psoriasis documented in this encounter Care Teams Service Crew Supervisor Relationship Specialty Start Date End Date Bianca Salazar FNP [address] [place] [address] PCP - General Family Medicine 07/20/22 documented as of this encounter
--- OUTSIDE RECORDS SUMMARY | 2024-10-20 09:15 | XMS_ITS | Encounter Summary ---
Author Organization [employer] Address [address] 7[address] [place] [address] Care Team Providers Care Cooking Instructor Name Role Phone Bianca Salazar PERSONALIZED LIVING MANAGER Primary Care Provider +1 -[phone] Encounter Details Date Type Department Care Team [...] 10/28/2024 2:00 PM EDT Office Visit [facility] MED[facility] [address] [place] [address] Bianca Salazar FNP [address] [place] [address] documented as of this encounter Visit Diagnoses Not on filedocumented in this encounter Care Teams Cooking Instructor Relationship Specialty Start Date End Date Bianca Salazar FNP [address] [place] [address] PCP - General Family Medicine 07/20/22 documented as of this encounter
--- OUTSIDE RECORDS SUMMARY | 2024-10-20 09:15 | XMS_ITS | Encounter Summary ---
Author Organization [employer] Address [address] [place] [address] [address] [place] [address] Care Team Providers Care Sheet Metal Welder Name Role Phone Bianca Salazar Primary Care Provider +1 [phone] Encounter Details Date Type Department Care Team [...] Description 10/28/2024 2:00 PM EDT Office Visit [facility] MEDICAL [address] [place] [address] Bianca Salazar FNP [address] [place] [address] documented as of this encounter Visit Diagnoses Not on filedocumented in this encounter Care Teams Sheet Metal Welder Relationship Specialty Start Date End Date Bianca Salazar FNP [address] [place] [address] PCP - General Family Medicine 07/20/22 documented as of this encounter
--- OUTSIDE RECORDS SUMMARY | 2024-10-20 09:15 | XMS_ITS | Encounter Summary ---
Author Organization [employer] Address [address] [place] [address] 7t [place] [address] Care Team Providers Care Spot Washer Name Role Phone Bianca Salazar Primary Care Provider +1 [phone] Encounter Details Date Type Department Care Team [...] Description 10/28/2024 2:00 PM EDT Office Visit [facility] MEDICAL [address] [place] [address] Bianca Salazar FNP [address] [place] [address] documented as of this encounter Visit Diagnoses Not on filedocumented in this encounter Care Teams Spot Washer Relationship Specialty Start Date End Date Bianca Salazar FNP [address] [place] [address] PCP - General Family Medicine 07/20/22 documented as of this encounter
--- OUTSIDE RECORDS SUMMARY | 2024-10-20 09:15 | XMS_ITS | Encounter Summary ---
Author Organization [employer] Address [address] [place] [address] [address]t [place] [address] Care Team Providers Care Tube Laser Operator Name Role Phone Bianca Salazar Primary Care Provider +1 [phone] Encounter Details Date Type Department Care Team [...] Visit [facility] MEDICAL [address] [place] [address] Bianca Salazar FNP [address] [place] [address] documented as of this encounter Visit Diagnoses Not on filedocumented in this encounter Care Teams Tube Laser Operator Relationship Specialty Start Date End Date Bianca Salazar FNP [address] [place] [address] PCP - General Family Medicine 07/20/22 documented as of this encounter
--- OUTSIDE RECORDS SUMMARY | 2024-10-20 09:15 | XMS_ITS | Clinical Summary ---
Author Organization [employer] Address [address] [place] [address] 7t [place] [address] Care Team Providers Care Food Service Manager Name Role Phone Bianca Salazar MANAGER PAPER Primary Care Provider +1 [phone] Allergies Active Allergy Reactions Criticality Noted Date [...] ordered as indicated. Advised pt to contact [facility] for specialist evaluation. Benign neoplasm of pituitary gland 06/22/2022 Recurrent cold sores 06/22/2022 Abnormal uterine bleeding 06/22/2022 Urinary incontinence, mixed 06/22/2022 Dysthymia 06/22/2022 Increased prolactin level 06/22/2022 Gastro-esophageal reflux disease without esophag itis 06/22/2022 Right sided sciatica 06/22/2022 Chronic fatigue 06/22/2022 Primary osteoarthritis of left knee 06/22/2022 Encounters Date Type Department Care Team Description 10/07/2024 Travel 09/15/2024 Oriana Hernandez [facility] MED[facility] [address] [place] [address] Bianca Salazar FNP Primary osteoarthritis of left knee (Primary Dx) 08/19/2024 Refill [facility] MEDICAL [address] [place] [address] Bianca Salazar FNP Herpesviral vesicular dermatitis 08/19/2024 Refill [facility] [address] [place] [address] Anne-Marie Toure FNP from Last 3 Months [...] 10/28/2024 2:00 PM EDT Office Visit [facility] [address] [place] [address] Bianca Salazar FNP [address] [place] [address] Health Maintenance Due Date Last Done Comments [...] AM EDT Performed at: ??01 - [facility] [address], [place], [place] ??[id number] Corporate Relations Director: Tay Edmond MD, Phone: ??[phone] [facility] LAB BLOOD ORDERABLES Michelle l Result Performing Organization Address [facility] Co de Phone Number [id number] * [...] AM EDT Performed at: ??01 - [facility] [address], [address], [place] ??[id number] Corporate Relations Director: Tay Edmond MD, Phone: ??[phone] [facility] LAB BLOOD ORDERABLES Michelle l Result Performing Organization Address [facility] de Phone Number [id number] 1 * BI [...] recommendations verbally communicated to the patient at [facility] 10/18/2023 1:40 PM. WSN: [id number] Ordering Physician: Bianca Salazar Dictated By: ?Janny [...] follow-up recommendations verbally communicated to the patientat [facility] 10/18/2023 1:40 PM. WSN: [id number] Ordering Physician: iBanca Salazar Dictated By: Janny Salinas MD Dictated Date/Time: 10/18/23 1:50 pm Reviewed By: Janny Salinas MD Signed By: Janny Salinas MD Signed Date/Time: 10/18/23 1:50 pm Transcribed By: BILLY Transcribed Date/Time: 10/18/23 1:42 pm Bianca Salazar MANAGER PAPER IMG US PROCEDURES Final R esult * [...] Provider LAB CYTOLOGY ORDERABLES F inal Result [facility] [address] [place] [address] from Last 3 Months or Most Recently Relevant to Health Maintenance Insurance [facility] STANDARD MEDICARE DENTAL-[facility] MEDICAID STAND ADULT Care Teams Food Service Manager Relationship Specialty Start Date End Date Bianca Salazar FNP [address] [place] [address] PCP - General Family Medicine 07/20/22
[2024-10-20 09:26] LABS: Basophils Absolute Auto 0.1 X10*3/uL (0.0-0.2); Basophils Percent Auto 2.2 % (0-2); Eosinophils Absolute Auto 0.1 X10*3/uL (0.0-0.4); Eosinophils Percent Auto 1.3 % (0-4); Hematocrit 43.4 % (37.0-47.0); Hemoglobin 14.9 g/dl (12.0-16.0); Imm Gran Abs Auto 0.01 X10*3/uL (0.00-0.03); Imm Gran Pct Auto 0.2 % (0.0-0.4); Lymphocytes Absolute Auto 1.9 X10*3/uL (1.2-4.9); Lymphocytes Percent Auto 42.5 % (20-40); Mean Corpuscular HGB Conc 34.3 g/dl (31.0-35.0); Mean Corpuscular Hemoglobin 31.4 pg (27.0-33.0); Mean Corpuscular Volume 91.4 fL (80.0-98.0); Mean Platelet Volume 10.5 fL (9.4-12.3); Monocytes Absolute Auto 0.5 X10*3/uL (0.1-1.2); Monocytes Percent Auto 10.9 % (2-11); Neutrophils Percent Auto 42.9 % (45-73); Platelet Count 304 X10*3/uL (160-400); Red Blood Count 4.75 X10*6/uL (4.20-5.50); Red Cell Distribution Width 11.8 % (11.0-16.0); White Blood Count 4.6 X10*3/uL (4.8-10.8)
[2024-10-20 10:02] LABS: Alanine Aminotransferase 12 U/L (0-31); Albumin Level 4.4 g/dL (3.5-5.0); Alkaline Phosphatase 92 U/L (39-117); Anion Gap 12 (12-20); Aspartate Amino Transferase 20 U/L (5-31); Bilirubin Total 0.5 mg/dL (0.0-1.0); Blood Urea Nitrogen 15 mg/dL (9-16); Calcium 9.3 mg/dL (8.4-10.2); Carbon Dioxide 27 mmol/L (22-29); Chloride 107 mmol/L (96-108); Estimated Glomerular Filt Rate > 60; Glucose Random 77 mg/dL (60-115); Sodium 142 mmol/L (135-145)
[2024-10-20 10:21] LABS: Ferritin 30 ng/mL (10-250); TSH reflex Free T4 2.71 uIU/mL (0.32-4.0)
[2024-10-20 10:28] LABS: Folate 6.4 ng/mL (> or = 4.0); Vitamin B12 282 pg/mL (200-900)
[2024-10-25 16:23] LABS: Vitamin D 25-OH, D2 6 ng/mL; Vitamin D 25-OH, D3 51 ng/mL; Vitamin D 25-OH, Total 57 ng/mL (30-100)
== END 2024-10-20 07:26 | disposition home or self-care (01) ==
LOC: HO.LAB 07:25
PROVIDERS: PCP Nurse Practitioner Family; Visit Provider Psychiatry & Neurology Neurology
DX: G43.719 Chronic migraine without aura, intractable, without status migrainosus (principal); G47.10 Hypersomnia, unspecified; R06.83 Snoring; Z79.899 Other long term (current) drug therapy
CPT/HCPCS: 36415; 64615; 80053; 82306; 82607; 82728; 82746; 84443; 85025; 99212; J0585

== ENCOUNTER 2024-10-20 07:25 | Outpatient (AMB) | payer MEDICARE, MEDICAID, SELFPAY ==
--- OUTSIDE RECORDS SUMMARY | 2024-10-20 07:26 | XMS_ITS | Encounter Summary ---
Author Organization [employer] Address [address] [place] [address] [address] [place] [address] Care Team Providers Care Seo Associate Name Role Phone Bianca Salazar Primary Care Provider [phone] Encounter Details Date Type Department Care Team (Late st Contact Info) Description 04/24/[address] [facility] [address] [place] [address] Bianca Salazar FNP [address] [place], [place] [id number] Scalp psoriasis Social History Tobacco Use Types Packs/Day Years Used Date Smoking Tobacco: Never Alcohol Use Standard Drinks/Week Comments Not Currently 0 (1 standard drink = 0.6 oz pur e alcohol) Housing Stability Answer Date Recorded What is your housing situation today? I have meng garcia 10/18/[address] you li ve. Do you have problems with any of the following? None of the above 10/18/2023 Food Insecurity Answer Date Recorded Within the past 12 months, y ou worried that your food would run out before you got money to buy more: Never True 10/18/2023 Within the past 12 months,th e food you bought just didn't last and you didn't have enough money to get more: Never True 08/2023 Transportation Answer Date Recorded In the past 12 months, has l ack of transportation kept you from medical appts, meetings, work or from getting things needed for daily living? No 10/18/2023 Utilities Answer Date Recorded In the past 12 months, has t he electric, gas, oil or water company threatened to shut off services in your home? No 10/18/2023 Depression Answer Date Recorded Patient Health Questionnaire-2 Score 0 10/18/2023 Comments Unknown Sex and Gender Information Value Date Recorded Sex Assigned at Female 08/17/2022 2:53 PM EST Legal Sex Female 5:35 PM EDT Gender Identity Female 08/17/2022 2:53 PM EST Sexual Orientation Choose not to disclose 2021 2:53 PM EST documented as of this encounter Plan of Treatment Upcoming Encounters Date Type Department Care Team (Late st Contact Info) Description 10/28/2024 2:00 PM EDT Office Visit [facility] [address] [place] [address] Bianca Salazar FNP [address] [place] [address] documented as of this encounter Procedures Procedure Name Priority Date/Time Associated Diagnosis Comments AMB REFERRAL TO DERMATOLOGY Routine 11/26/2023 Scalp psoriasis documented in this encounter Results * Referral to Dermatology (11/26/2023) Bianca LYLES OUTPATIENT REFERRAL ORDER JOEL Final Result documented in this encounter Visit Diagnoses Diagnosis Scalp psoriasis Other psoriasis documented in this encounter Care Teams Seo Associate Relationship Specialty Start Date End Date Bianca Salazar FNP [address] [place] [address] PCP - General Family Medicine 07/20/22 documented as of this encounter
--- OUTSIDE RECORDS SUMMARY | 2024-10-20 07:26 | XMS_ITS | Encounter Summary ---
Author Organization [employer] Address [address] [place] [address] Care Team Providers Care Trouble Lineman Name Role Phone Bianca Salazar PHYSICS INSTRUCTOR Primary Care Provider [phone] Encounter Details Date Type Department Care Team (Latest Contact Info) Description 10/07/2024 Travel Social History Tobacco Use Types Packs/Day Years [...] Description 10/28/2024 2:00 PM EDT Office Visit [facility] [address] [place] [address] Bianca Salazar FNP [address] [place] [address] documented as of this encounter Visit Diagnoses Not on filedocumented in this encounter Care Teams Trouble Lineman Relationship Specialty Start Date End Date Bianca Salazar FNP [address] [place] [address] PCP - General Family Medicine 07/20/22 documented as of this encounter
--- OUTSIDE RECORDS SUMMARY | 2024-10-20 07:27 | XMS_ITS | Clinical Summary ---
Author Organization [employer] Address [address] [place] [address] [address] [place] [address] Care Team Providers Care Medical Transcriptionist Name Role Phone Bianca Salazar [employer] Primary Care Provider [phone] [phone] Allergies Active Allergy Reactions Criticality Noted Date Comments Povidone Iodine Rash Low 06/22/2022 Cephalexin Rash Low 06/22/2022 Other reaction(s): fever, rash on torso Etodolac 06/22/2022 Other reaction(s): not sure Iodine 06/22/2022 Other reaction(s): Unknown Medications Cholecalciferol (Vitamin D) 10 MCG/ML liquid Take by mouth. A ctive aspirin-acetaminop hen-caffeine (Excedrin Migraine) 250-250-65 MG tablet Take 1 tablet by mouth every 6 (six) hours if needed for headaches. Active zolpidem (Ambien) 5 MG tablet Take 5 mg by mouth if needed at bedtime for sleep. Active diphenoxylate-atro pine (Lomotil) 2.5-0.025 MG tablet Take 1 tablet by mouth if needed in the morning, at noon, in the evening, and at bedtime (loose stool). Active cyclobenzaprine (Flexeril) 10 MG tablet 1 tablet. 01/22/20 19 Active Elastic Bandages & Supports (Medical Compression Stockings) misc as directed externally to both legs daily on in morning off at night as directed for 30 10/13/19 15 Active Botox 200 units injection 01/25/20 23 Active riboflavin (Vitamin B-2) 400 MG tablet Take 1 tablet by mouth in the morning. 12/28/19 23 Active Neomycin-Polymyxin -HC 1 % solutionIndication s:Acute otitis externa of both ears, unspecified type Administer 3 drops into affected ear(s) 2 times daily. 10 mL 03/27/20 23 Active FLUoxetine (PROzac) 20 MG capsuleIndications :Dysthymic disorder TAKE 1 CAPSULE BY MOUTH EVERY DAY 90 capsule 3 11/17/19 24 Active ibuprofen 800 MG tabletIndications: Migraine with aura, not intractable, without status migrainosus TAKE 1 TABLET BY MOUTH 3 TIMES A DAY NEEDED FOR PAIN TAKE WITH FOOD 90 tablet 1 01/02/20 24 Active triamcinolone (Kenalog) 0.1 % lotion APPLY TO SCALP 2X DAILY NEEDED FOR FLARES, DECREASE TO DAILY/EVERY OTHER DAY SYMPTOMS IMPROVE 11/26/19 24 Active Nurtec 75 MG tablet dispersible 01/25/20 24 Active naproxen sodium (Aleve) 220 MG tablet TAKE 2 TABLETS BY MOUTH EVERY 12 HOURS NEEDED FOR MIGRAINE FOR 30 DAYS 11/06/19 24 Active gabapentin (Neurontin) 100 MG capsuleIndications :Degenerative disc disease at L5-S1 level TAKE 1 CAPSULE BY MOUTH AT BEDTIME 30 capsule 02/13/20 24 Active lidocaine (Lidoderm) 5 % patchIndications:D egenerative disc disease at L5-S1 level APPLY 1 PATCH TOPICALLY ONCE PER DAY. APPLY TO PAINFUL AREA 12 HOURS PER DAY, REMOVE FOR 12 HOURS. 30 patch 05/29/20 24 025 Active butalbital-aspirin -caffeine (Fiorinal) 50-325-40 MG capsuleIndications :Migraine with aura and without status migrainosus, not intractable Take 1 capsule by mouth every 4 (four) hours if needed for migraine. 20 capsule 1 07/06/20 24 Active famotidine (Pepcid) 40 MG tablet TAKE 1 TABLET BY MOUTH ONCE PER DAY 90 tablet 08/20/19 25 Active valACYclovir (Valtrex) 500 MG tabletIndications: Herpesviral vesicular dermatitis TAKE 1 TABLET BY MOUTH EVERY DAY IN THE MORNING 90 tablet 1 08/20/19 25 Active oxyCODONE-acetamin ophen (Percocet) 5-325 MG tabletIndications: Primary osteoarthritis of left knee Take 1 tablet by mouth every 12 (twelve) hours for 7 days. 14 tablet 09/16/19 25 025 Active Problems Problem Noted Date Diagnosed Date Renal cyst 05/05/2024 Overview (05/05/2024): 1.5 cm cyst on MRI 04/2024 and recommended repeat MRI in 6 months to reassess Annual physical exam 10/18/2023 Overview (10/18/2023): Patient is overall well. Managing chronic migraines. Follows a healthy diet with exercises. Up to date on age appropriate prevention. Lipid panel ordered. Agreeable to Hep C and HIV screener. Irritable bowel syndrome with diarrhea Sleep disturbance 06/22/2022 Migraine with aura and witho ut status migrainosus, not intractable 06/22/2022 Fibromyalgia 06/22/2022 Degenerative disc disease at L5-S1 level 022 Overview (04/13/2024): Assessment - Chronic back pain, possibly due to herniated discs - Possible sciatica due to pain traveling down the left leg Plan -waiting for MRI orders to further assess abnormalities on initial spin MRI -Neurology will see pt after additional imaging is done Prescription - Percocet, one tablet every 12 hours as needed for severe pain. Patient has not been taking because it is not effective - Gabapentin, 100mg at night for potential relief of sciatica pain - Has been taking tylenol and ibuprofen and muscle relaxer - Will trial lidocaine patch Assessment & Plan (04/03/2024 11:39 PM EDT): Images from the original note were not included. Reviewed MRI results with patient. Follow up imaging ordered as indicated. Advised pt to contact [facility] Neuro for specialist evaluation. Benign neoplasm of pituitary gland 06/22/2022 Recurrent cold sores 06/22/2022 Abnormal uterine bleeding 06/22/2022 Urinary incontinence, mixed 06/22/2022 Dysthymia 06/22/2022 Increased prolactin level 06/22/2022 Gastro-esophageal reflux disease without esophag itis 06/22/2022 Right sided sciatica 06/22/2022 Chronic fatigue 06/22/2022 Primary osteoarthritis of left knee 06/22/2022 Encounters Date Type Department Care Team Description 10/07/2024 Travel 09/15/2024 Oriana Hernandez [facility] [address] [place] [id number] Bianca Salazar FNP Primary osteoarthritis of left knee (Primary Dx) 08/19/2024 Refill [facility] [address] [place] [address] Bianca Salazar FNP Herpesviral vesicular dermatitis 08/19/2024 Refill [facility] [address] [place] [address] Anne-Marie Toure FNP from Last 3 Months Immunizations Name Administration Dates Next Due Influenza Whole 03/29/2020 Influenza injectable quadriv alent preservative free 03/29/2020,05/29/2019 Influenza, IIV3, injectable 07/07/2021,0 03/29/2020,05/29/2019,2017,06/12/2017,06/15/2015,05/26/2014,0 04/02/2012,04/20/2011,05/30/2010 Influenza, seasonal, injecta ble, preservative free 05/21/2013 Moderna Covid-19 Vaccine 12+ 07/11/2021,12/25/19 21,11/26/2020 Tdap 06/05/2021,,06/05/2011,2010 Zoster, Recombinant 07/19/2020,03/29/2020 Family History Relation Name Status Comments Daughter 1 Alive Daughter 2 Alive Father Headache, thyro id Ca, diagnosed with Thyroid disorder, Hypertension Maternal Grandmother Diabete s, Cardiopathy Mother Headache, hyter ectomy for endometrial Ca, kidney stones, diagnosed with Hypertension Paternal Grandmother Cardiom yopathy Sister Headache, kidne y stones Social History Tobacco Use Types Packs/Day Years [...] not to disclose 2021 2:53 PM EST Last Filed Vital Signs Vital Sign Reading Time Taken Comments Blood Pressure 110/80 05/22/2024 10:46 AM EDT Pulse 64 05/22/2024 10:46 AM EDT Temperature 36.4 ??C (97.5 ??F) 05/22/2024 10:46 AM E DT Respiratory Rate 16 05/22/2024 10:46 AM EDT Oxygen Saturation 97% 02/21/2022 10:00 AM EDT Inhaled Oxygen Concentration - - Weight 59.9 kg (132 lb) 05/22/2024 10:46 AM EDT Height 154.9 cm (5' 1 ) 05/22/2024 10:46 AM EDT Body Mass Index 24.94 05/22/2024 10:46 AM EDT Plan of Treatment Upcoming Encounters Date Type Department Care Team (Late st Contact Info) Description 10/28/2024 2:00 PM EDT Office Visit [facility] [address] [place] [address] Bianca Salazar FNP [address] [place] [address] Health Maintenance Due Date Last Done Comments CT Colonography 1970 FIT DNA/Cologuard 1970 FIT 1970 FOBT 1970 Sigmoidoscopy 1970 Alcohol/Substance Use Screening 1982 Hepatitis B Vaccines (1 of 3 - 19+ 3-dose series) 1989 Pneumococcal Vaccine: 50+ Years (1 of 1 - PCV) 01/06/2020 Dental X-Ray: Full Mouth 12/04/2020 12/03/2017, 06/0 04/2014 HPV/Cotest 07/27/2021 11/18/2014 Dental Oral Exam 11/30/2022 05/31/2022, 12/2020, 11/15/2020, Additional history exists Dental X-Ray: Bitewings 06/01/2023 05/31/20, 05/23/2021, 05/11/2020, Additional history exists Dental Prophylaxis 03/19/2024 09/18/2023, 0 03/06/2023, 08/28/2022, Additional history exists COVID-19 Vaccine ( season) 2024 07/11/2021, 12/24/2020, 11/26/2020 Influenza Vaccine (#1) 2024 , 03/29/2020, 03/29/2020, Additional history exists Depression Screening 10/17/2024 10/18/2023, 10/18/19 24 SDOH Screening 10/17/2024 10/18/2023 Tobacco Screening 05/22/2025 05/22/2024 Colonoscopy 08/01/2025 08/01/2015, 07/19, 08/01/2015, Additional history exists Colorectal Cancer Screening 08/01/2025 Mammogram 10/17/2025 10/18/2023, 0308/2023, 10/07/2023, Additional history exists Cervical Cancer Screening 07/26/2026 Pap Smear 07/26/2026 07/26/2021, 0409/2014, 04/09/2012 DTaP/Tdap/Td Vaccines (5 - Td or Tdap) 06/05/2031 06/05/2021, 03/15/2021, 06/05/2011, Additional history exists RSV Patients and Patients Aged 60 years or older (1 - 1-dose 75+ series) 2045 Zoster Vaccines Completed 07/19/2020, 03/29/2020 HIV Screening Completed 01/31/2024 Hepatitis C Screening Completed 01/31/2024 HIB Vaccines Aged Out No longer eligi ble based on patient's age to complete this topic HPV Vaccines Aged Out No longer eligi ble based on patient's age to complete this topic Hepatitis A Vaccines Aged Out No long er eligible based on patient's age to complete this topic IPV Vaccines Aged Out No longer eligi ble based on patient's age to complete this topic Meningococcal Vaccine Aged Out No josephine jack eligible based on patient's age to complete this topic RSV under 20 months Aged Out No longe r eligible based on patient's age to complete this topic Rotavirus Vaccines Aged Out No longer eligible based on patient's age to complete this topic Procedures Procedure Name Priority Date/Time Associated Diagnosis Comments HEPATITIS C AB W/REFLEX TO HCV QUANT NAAT IF POSITIVE Routine 01/31/2024 10:42 AM EDT Screening for blood disease HIV P24 ANTIGEN/ANTIBODY WITH REFLEX TO CONFIRMATION Routine 01/31/2024 10:41 AM EDT BI US BREAST LIMITED RIGHT Routine 10/18/2023 1:26 PM EST Full PROPHYLAXIS - ADULT Routine 09/18/2023 8:30 AM EST BITEWINGS - 4 RADIOGRAPHIC IMAGES Routine 05/31/2022 12:00 AM EDT PERIODIC ORAL EVALUATION - ESTABLISHED PATIENT Routine 05/31/2022 12:00 AM EDT PAP SMEAR Routine 07/26/2021 12:00 AM EST INTRAORAL - COMPLETE SERIES OF RADIOGRAPHIC IMAGES Routine 12/03/2017 12:00 AM EDT COLONOSCOPY Routine 08/01/2015 THIN PREP PAP, WITH HPV Routine 11/18/2014 12:00 AM EDT from Last 3 Months or Most Recently Relevant to Health Maintenance Results * Hepatitis C Ab w/Reflex to HCV Quant NAAT if Positive (01/31/2024 10:42 AM EDT) HCV Ab Non Reactive Non Reactive [facility] 1 Blood 01/31/2024 10:4 2 AM EDT 01/31/2024 Narrative [facility] 1 - 02/01/2024 10:05 AM EDT Performed at: ??01 - [facility] [address], [place], [place] [id number] [address] Liaison: Tay Edmond MD, Phone: ??[phone] [facility] LAB BLOOD ORDERABLES Michelle l Result Performing Organization Address [facility] Co de Phone Number [facility] 1 * HIV p24 Antigen/Antibody With Reflex to Confirmation (01/31/2024 10:41 AM EDT) HIV Ab/p24 Ag Screen Non Reactive Non Reactive [facility] 1 Comment: HIV-1/HIV-2 antibodies and HIV-1 p24 antigen were NOT detected. There is no laboratory evidence of HIV infection. HIV Negative 01/31/2024 10:4 1 AM EDT 01/31/2024 Narrative [facility] 1 - 02/01/2024 10:05 AM EDT Performed at: ??01 - [facility] [address], [place] ??[id number] Court Liaison: Tay Edmond MD, Phone: ??[phone] [facility] LAB BLOOD ORDERABLES Michelle l Result Performing Organization Address [facility] de Phone Number [facility] 1 * BI US Breast Limited Right (10/18/2023 1:26 PM EST) Anatomical Region Laterality Modality Breast Right Ultrasound 10/18/2023 1:26 PM EST Narrative 10/18/2023 1:53 PM EST PROCEDURE: MM Digital Mammo Unilat Right, US Breast Right Limited INDICATION: Reason: RIGHT ABNORMAL MAMMOGRAM Callback from screening mammogram, questionable architectural distortion RIGHT breast. COMPARISON: 10/07/2023 screening mammogram and dating back to 08/14/2017. TECHNIQUE: Digital diagnostic RIGHT mammogram: 3-D spot compression CC and MLO views. 3-D full field and spot compression ML views. Computer-aided detection (CAD) was utilized in the interpretation of this study. Targeted high-resolution RIGHT breast ultrasound. FINDINGS: MAMMOGRAM: Additional images demonstrate effacement and changeability of previously identified abnormality, which has the appearance of normal overlapping fibroglandular tissue. ULTRASOUND: Targeted high-resolution RIGHT breast ultrasound. Focused imaging at 6:00-7:00 position centered 4 cm from the nipple. There is no solid mass, cyst or suspicious shadowing. Normal breast tissue identified. IMPRESSION: No mammographic or ultrasound evidence of malignancy. RECOMMENDATION: Annual mammographic screening BI-RADS: 2 (Benign) Lay letter mailed to patient Results and follow-up recommendations verbally communicated to the patient at [facility] 10/18/2023 1:40 PM. WSN: [id number] Ordering Physician: Bianca Salazar Dictated By: ?Janny Salinas MD Dictated Date/Time: ?10/18/23 1:50 pm Reviewed By: ?Janny Salinas MD Signed By: ? Janny Salinas MD Signed Date/Time: ? 10/18/23 1:50 pm Transcribed By: ? CSB Transcribed Date/Time: ?10/18/23 1:42 pm Procedure Note Donotuseinterpreter, Image - 10/18/2023 PROCEDURE: MM Digital Mammo Unilat Right, US Breast Right Limited INDICATION: Reason: RIGHT ABNORMAL MAMMOGRAM Callback from screening mammogram, questionable architectural distortionRIGHT breast. COMPARISON: 10/07/2023 screening mammogram and dating back to 08/14/2017. TECHNIQUE: Digital diagnostic RIGHT mammogram: 3-D spot compression CC and MLO views.3-D full field and spot compression ML views. Computer-aided detection (CAD)was utilized in the interpretation of this study. Targeted high-resolution RIGHT breast ultrasound. FINDINGS: MAMMOGRAM: Additional images demonstrate effacement and changeability of previously identified abnormality, which has the appearance of normal overlapping fibroglandular tissue. ULTRASOUND: Targeted high-resolution RIGHT breast ultrasound. Focused imaging at 6:00-7:00 position centered 4 cm from the nipple. There is no solid mass, cyst or suspicious shadowing. Normal breasttissue identified. IMPRESSION: No mammographic or ultrasound evidence of malignancy. RECOMMENDATION: Annual mammographic screening BI-RADS: 2 (Benign) Lay letter mailed to patient Results and follow-up recommendations verbally communicated to the patientat [facility] 10/18/2023 1:40 PM. WSN: [id number] Ordering Physician: Bianca Salazar Dictated By: Janny Salinas MD Dictated Date/Time: 10/18/23 1:50 pm Reviewed By: Janny Salinas MD Signed By: Janny Salinas MD Signed Date/Time: 10/18/23 1:50 pm Transcribed By: BILLY Transcribed Date/Time: 10/18/23 1:42 pm Bianca Salazar [employer] IMG US PROCEDURES Final R esult * Pap Smear (07/26/2021 12:00 AM EST) Swab Historical Provider LAB CYTOLOGY ORDERABLES F inal Result * Colonoscopy (08/01/2015) Anatomical Region Laterality Modality Endoscopy 08/01/2015 Impressions 09/19/2022 9:24 AM EST Negative, 10 yr rpt recommended Laurie Ramirez ENDOSCOPY PROCEDURE ORDERABLES F inal Result * THIN PREP PAP, WITH HPV (11/18/2014 12:00 AM EDT) Historical Provider LAB CYTOLOGY ORDERABLES F inal Result [facility] [address] [place] [address] from Last 3 Months or Most Recently Relevant to Health Maintenance Insurance [facility] STANDARD MEDICARE DENTAL-[facility] MEDICAID STAND ADULT Care Teams Medical Transcriptionist Relationship Specialty Start Date End Date Bianca Salazar FNP [address] [place] [address] PCP - General Family Medicine 07/20/22
--- OUTSIDE RECORDS SUMMARY | 2024-10-20 07:27 | XMS_ITS | Encounter Summary ---
Author Organization [employer] Address [address] [place] [address] [address] [place] [address] Care Team Providers Care Auto Body Repairer Name Role Phone Bianca Salazar Primary Care Provider [phone] [phone] Encounter Details Date Type Department Care Team (Latest Contact Info) Description 05/11/2020 Abstract [facility] CONVERSION[facility] Dental, Provider, DDS Social History Tobacco Use Types Packs/Day Years Used Date Smoking Tobacco: Never Assessed Comments Unknown Sex and Gender Information Value [...] Description 10/28/2024 2:00 PM EDT Office Visit [facility] MED[facility] [address] [place] [address] Bianca Salazar FNP [address] [place] [address] documented as of this encounter Visit Diagnoses Not on filedocumented in this encounter Care Teams Auto Body Repairer Relationship Specialty Start Date End Date Bianca Salazar FNP [address] [place] [address] PCP - General Family Medicine 07/20/22 documented as of this encounter
--- OUTSIDE RECORDS SUMMARY | 2024-10-20 07:27 | XMS_ITS | Encounter Summary ---
Author Organization [employer] Address [address] [place] [address] [address] [place] [address] Care Team Providers Care Screen And Cyclone Repairer Name Role Phone Bianca Salazar Primary Care Provider [phone] [phone] Encounter Details Date Type Department Care Team (Latest Contact Info) Description 11/15/2020 Abstract [facility] CONVERSIONS Dental, Provider, DDS Social [...] Description 10/28/2024 2:00 PM EDT Office Visit [facility] [address] [place] [address] Bianca Salazar FNP [address] [place] [address] documented as of this encounter Visit Diagnoses Not on filedocumented in this encounter Care Teams Screen And Cyclone Repairer Relationship Specialty Start Date End Date Bianca Salazar FNP [address] [place] [address] PCP - General Family Medicine 07/20/22 documented as of this encounter
--- OUTSIDE RECORDS SUMMARY | 2024-10-20 07:27 | XMS_ITS | Encounter Summary ---
Author Organization [employer] Address [address] [place] [address] [address] [place] [address] Care Team Providers Care Boat Engine Mechanic Name Role Phone Bianca Salazar Primary Care Provider +1 -[phone] Encounter Details Date Type Department Care Team (Latest Contact Info) Description 06/15/2019 Abstract [facility] CONVERSIONS Dental, Provider, DDS Social [...] Description 10/28/2024 2:00 PM EDT Office Visit [facility] MED[facility] [address] [place] [address] Bianca Salazar FNP [address] [place] [address] documented as of this encounter Visit Diagnoses Not on filedocumented in this encounter Care Teams Boat Engine Mechanic Relationship Specialty Start Date End Date Bianca Salazar FNP [address] [place] [address] PCP - General Family Medicine 07/20/22 documented as of this encounter
--- OUTSIDE RECORDS SUMMARY | 2024-10-20 07:27 | XMS_ITS | Encounter Summary ---
Author Organization [employer] Address [address] [place] [address] [address] [place] [address] Care Team Providers Care Hospital Nurse Name Role Phone Bianca Salazar Primary Care Provider [phone] [phone] Encounter Details Date Type Department Care Team (Latest Contact Info) Description 05/31/2022 Abstract [facility] CONVERSIONS Dental, Provider, DDS Social [...] 10/28/2024 2:00 PM EDT Office Visit [facility] MED[facility] [address] [place] [address] Bianca Salazar FNP [address] [place] [address] documented as of this encounter Visit Diagnoses Not on filedocumented in this encounter Care Teams Hospital Nurse Relationship Specialty Start Date End Date Bianca Salazar FNP [address] [place] [address] PCP - General Family Medicine 07/20/22 documented as of this encounter
--- OUTSIDE RECORDS SUMMARY | 2024-10-20 07:27 | XMS_ITS | Encounter Summary ---
Author Organization [employer] Address [address] [place] [address] [address] [place] [address] Care Team Providers Care Clinical Trial Coordinator Name Role Phone Bianca Salazar Primary Care Provider [phone] [phone] Encounter Details Date Type Department Care Team (Latest Contact Info) Description 05/23/2021 Abstract [facility] CONVERSIONS Dental, Provider, DDS Social [...] Description 10/28/2024 2:00 PM EDT Office Visit [facility] MED[facility] [address] [place] [address] Bianca Salazar FNP [address] [place] [address] documented as of this encounter Visit Diagnoses Not on filedocumented in this encounter Care Teams Clinical Trial Coordinator Relationship Specialty Start Date End Date Bianca Salazar FNP [address] [place] [address] PCP - General Family Medicine 07/20/22 documented as of this encounter
--- OUTSIDE RECORDS SUMMARY | 2024-10-20 07:27 | XMS_ITS | Encounter Summary ---
Author Organization [employer] Address [address] [place] [address] [address] [place] [address] Care Team Providers Care Assistant Plant Manager Name Role Phone Bianca Salazar Primary Care Provider [phone] [phone] Encounter Details Date Type Department Care Team (Latest Contact Info) Description 11/23/2021 Abstract [facility] CONVERSION[facility] Dental, Provider, DDS Social [...] Description 10/28/2024 2:00 PM EDT Office Visit [facility] MED[facility] [address] [place] [address] Bianca Salazar FNP [address] [place] [address] documented as of this encounter Visit Diagnoses Not on filedocumented in this encounter Care Teams Assistant Plant Manager Relationship Specialty Start Date End Date Bianca Salazar FNP [address] [place] [address] PCP - General Family Medicine 07/20/22 documented as of this encounter
[2024-10-20 07:34] VITALS: PULSE 60; O2SAT 99; BMI 25.1
--- NOTE | 2024-10-20 07:34 | A.OFFVIS_ITS ---
Vital Signs 10/20/24 07:34 Height 5 ft 2 in Weight 137 lb BMI 25.1 Pulse 60 Pulse Source Pulse Oximeter Pulse Oximetry (%) 99 Oxygen Delivery Method Room Air Intake Visit Reasons: Botox Intake Note: patient here for botox injection. Practice supplied Allergies cephalexin [From Keflex] Allergy (Intermediate, Verified 10/20/24 07:34) Fever etodolac Allergy (Unknown, Verified 10/20/24 07:34) Unknown iodine Allergy (Unknown, Verified 10/20/24 07:34) Unknown povidone-iodine [From Betadine] Allergy (Unknown, Verified 10/20/24 07:34) Rash Medication List - Last Reconciled 10/20/24 by Lizzette Diaz MD oxpcjqv-gkdjvmkjyqjgc-byoiulic 250-250-65 mg (Excedrin Migraine) 2 tabs PO Q6H PRN unwyugbfxk-bfvojhh-mrvaftpr 50-325-40 mg 1-2 caps q 8hrs as needed for headaches orally PRN; do not exceed 3 doses per 24 hrs cholecalciferol (vitamin D3) 250 mcg PO DAILY diphenoxylate-atropine 2.5-0.025 mg (Lomotil) 1 tab PO QID PRN famotidine 20 mg PO DAILY fluoxetine 20 mg PO DAILY ibuprofen 800 mg PO TID PRN naproxen sodium 440 mg (2 x 220 mg) PO Q12H PRN 30 days onabotulinumtoxinA (Botox) 155 units IM ONCE 12 weeks riboflavin (vitamin B2) 400 mg PO DAILY 30 days rimegepant (Nurtec ODT) 75 mg PO ONCE PRN 30 days MDD 1 tab valacyclovir 500 mg PO DAILY zolpidem 5 mg PO BEDTIME PRN HPI Comments Details: ? 54y/o female comes for treatment of migraines with botox.she also reports poor sleep with loud snoring frequent arousals and excessive dyatime sleepiness. .How many migraine days prior to botox- 25-30 days How long do the migraines last 1-2 days Intensity of migraine 8-05/28 ER visits related to migraine 2-3 Effectiveness of botox from last two treatment(s) How many migraine days since receiving treatment:3-5 Change? in intensity of migraine?decreased Change in frequency of migraine?decreased Change in use of acute medication for migraine?decreased Change in quality of life?better ER visits related to migraine?0 Have at least three months elapsed since last treatment (Last botox date - frequency of injections)3 mths ??? Most frequent reported adverse reactions following injection of botox for chronic migraine include neck pain (9%), headache(5%), eyelid ptosis(4%), migraine(4%), muscular weakness(4%), musculuskeletal stiffness(4%), bronchitis(3%), injection site pain (3%), musculoskeletal pain(3%), myalgia(3%), facial paresis(2%), HTN(2%) and muscle spasms(2%) were discussed in detail. ??? Botulinum toxin typeA 200units Lot no [id number] expiration October 2026 was diluted with 4 cc of normal saline . ??? Muscles injected- ??? Frontalis 4 sites ??? Procerus 1 site ??? Correction Lieutenant- 2 sites ??? Temporalis- 8 sites ??? Occipitalis- 6 sites ??? Cervical paraspinals- 4 sites ??? Trapezius- 6 sites- ??? 5 units each in 31 site ??? Total use- 155units ??? Discarded-45units [facility] Medical History Chronic migraine without aura, intractable, without status migrainosus Chronic migraine without aura Hyperprolactinemia IBS (irritable bowel syndrome) Ovarian cyst Syncope Herniated lumbar disc without myelopathy Palpitations Fibromyalgia Depression Herpetic gingivostomatitis GERD (gastroesophageal reflux disease) Surgical History H/O laparoscopy History of section Family History Father Thyroid cancer Hypertension Glaucoma Mother Endometrial cancer Kidney stones Hypertension Fibromyalgia Sister Kidney stones Acute Crohn's disease Paternal Grandmother Heart disease Maternal Grandmother Heart disease Diabetes Social History Alcohol intake: never Patient Tobacco Use Status: Never used Tobacco Physical Exam Vital Signs: Last Vital Signs Pulse 60 10/20/24 07:34 Pulse Ox 99 10/20/24 07:34 Oxygen Delivery Method Room Air 10/20/24 07:34 BMI result Body Mass Index 25.1 Const General: cooperative and no acute distress Orientation/consciousness: patient oriented x3 HEENT Head: Yes normocephalic Resp Effort & Inspection: normal respiratory effort and able to speak in complete sentences Neuro General: patient oriented x3, gait normal and CN's II-XI intact bilaterally Cognition (Neuro): normal cognition Motor exam (neuro): 5/5 motor strength present throughout Office Procedures Botulinum toxin Injection 29451 - Migraine Procedure code (CPT) selection complete Office Meds onabotulinumtoxinA 200 unit solution for injection Performing Provider: Lizzette Diaz MD Performing Location: [facility] [place] [facility] Administered by: Lizzette Diaz MD on 10/20/24 08:04 Dose Route Admin Location Dispensed Lot Number Expiration Date [facility] Owner Operator Tanker Truck Driver 155 unit subcut 200 units [id number] [employer] Comments: see HPI Assessment & Plan Assessment & Plan (1) Chronic migraine without aura, intractable, without status migrainosus: Code(s): G43.719 - Chronic migraine without aura, intractable, without status migrainosus Category: Medical (2) Snoring: Code(s): R06.83 - Snoring Category: Medical (3) Hypersomnia: Code(s): G47.10 - Hypersomnia, unspecified Category: Medical Plan Patient tolerated the procedure well she will call with any side effects Home sleep test to r/o sleep apnea check B12 TSH CBC CMP ferritin levels Orders: Orders Vitamin B12 and Folate Today G43.719 - Chronic migraine without aura, intractable, without status migrainosus, G47.10 - Hypersomnia, unspecified Comprehensive Met. Panel Today G43.719 - Chronic migraine without aura, intractable, without status migrainosus, G47.10 - Hypersomnia, unspecified AMB Botulinum toxin Injection Today G43.719 - Chronic migraine without aura, intractable, without status migrainosus RT home sleep study Today G47.10 - Hypersomnia, unspecified, R06.83 - Snoring TSH reflex Free T4 Today G43.719 - Chronic migraine without aura, intractable, without status migrainosus, G47.10 - Hypersomnia, unspecified Vitamin D 25-OH (D2 and D3) Today G43.719 - Chronic migraine without aura, intractable, without status migrainosus, G47.10 - Hypersomnia, unspecified Ferritin Today G43.719 - Chronic migraine without aura, intractable, without status migrainosus, G47.10 - Hypersomnia, unspecified Complete Blood Count Auto Diff Today G43.719 - Chronic migraine without aura, intractable, without status migrainosus, G47.10 - Hypersomnia, unspecified Medications: New onabotulinumtoxinA 200 units subcut ONCE 1 ea 0RF Migraine G43.719 - Chronic migraine without aura, intractable, without status migrainosus Refilled riboflavin (vitamin B2) 400 mg PO DAILY 30 days 30 tabs 6RF zavaevlpja-iyfojbo-dszmaqmy 50-325-40 mg 1-2 caps q 8hrs as needed for headache s orally PRN; do not exceed 3 doses per 24 hrs 15 caps 3RF migraine headache rimegepant (Nurtec ODT) 75 mg PO ONCE 30 days PRN 16 tabs 3RF migraine headache MDD 1 tab Coding Level of Care Code Est Pt Level 3 (26628) Diagnoses Chronic migraine without aura, intractable, without status migrainosus G43.719 Snoring R06.83 Hypersomnia G47.10 CPT Codes Botox Injection - Botox 3: 33926 - Migraine ([id number])
== END 2024-10-20 07:58 | disposition home or self-care (01) ==
PROVIDERS: PCP Nurse Practitioner Family; Visit Provider Psychiatry & Neurology Neurology
DX: G43.719 Chronic migraine without aura, intractable, without status migrainosus (principal); R06.83 Snoring; G47.10 Hypersomnia, unspecified
CPT/HCPCS: 64615; 99213

== ENCOUNTER → 2024-12-22 08:41 | Outpatient (REF) | payer MEDICARE, MEDICAID, SELFPAY ==
--- OUTSIDE RECORDS SUMMARY | 2024-12-22 09:08 | XMS_ITS | Encounter Summary ---
Author Organization [employer] Address [address] [place] [address] Care Team Providers Care Field Sales Trainer Name Role Phone Bianca Salazar [facility] Primary Care Provider +1 [phone] Encounter Details Date Type Department Care Team (Late st Contact Info) Description 04/24/2024 Orders Only [facility] MEDICAL [address] [place] [address] Bianca Salazar FNP [address] [place], [place] [phone] Scalp psoriasis Social History Tobacco Use Types [...] as of this encounter Plan of Treatment Not on file documented as of this encounter Procedures Procedure Name Priority Date/Time Associated Diagnosis Comments AMB REFERRAL TO DERMATOLOGY Routine 11/26/2023 Scalp psoriasis documented in this encounter Results * Referral to Dermatology (11/26/2023) Bianca LYLES OUTPATIENT REFERRAL ORDER JOEL Final Result documented in this encounter Visit Diagnoses Diagnosis Scalp psoriasis Other psoriasis documented in this encounter Care Teams Field Sales Trainer Relationship Specialty Start Date End Date Bianca Salazar FNP [address] [place] [address] PCP - General Family Medicine 07/20/22 documented as of this encounter
--- OUTSIDE RECORDS SUMMARY | 2024-12-22 09:09 | XMS_ITS | Encounter Summary ---
Author Organization [employer] Address [address] [place] [address] Care Team Providers Care Mining Machinery Assembler Name Role Phone Bianca Salazar Primary Care Provider +1 -[phone] Encounter Details Date Type Department Care Team [...] on file documented as of this encounter Visit Diagnoses Not on filedocumented in this encounter Care Teams Mining Machinery Assembler Relationship Specialty Start Date End Date Bianca Salazar FNP [address] [place] [address] PCP - General Family Medicine 07/20/22 documented as of this encounter
--- OUTSIDE RECORDS SUMMARY | 2024-12-22 09:09 | XMS_ITS | Encounter Summary ---
Author Organization [employer] Address [address] [facility] 7t [place] [address] Care Team Providers Care Detention Worker Name Role Phone Bianca Salazar CLIENT CARE MANAGER Primary Care Provider +1 -[phone] Encounter Details Date Type Department Care Team (Late st Contact Info) Description 10/24/2024 Orders Only [facility] [address] [place] [address] Bianca Salazar FNP [address] [place], [place] [phone] Social History Tobacco Use Types Packs/Day Years [...] Procedure Name Priority Date/Time Associated Diagnosis Comments BI MAMMOGRAM SCREENING TOMOSYNTHESIS BILATERAL Routine 10/27/2024 8:23 AM EDT COMPREHENSIVE METABOLIC PANEL Routine 10/20/2024 9:43 AM EST documented in this encounter Results * BI Mammogram Screening Tomosynthesis Bilateral (10/27/2024 8:23 AM EDT) Anatomical Region Laterality Modality Breast Bilateral Mammography 10/27/2024 8:23 AM EDT Narrative 10/27/2024 2:30 PM EDT PROCEDURE: MM Digital Mammo Screening INDICATION: ??Screening for breast cancer. ??No known palpable abnormalities. COMPARISON: Back to 09/29/2021. TECHNIQUE: Full-field digital CC and MLO 3D tomosynthesis images of both breasts were acquired. Computer-aided detection (CAD) was utilized in the interpretation of this study. DENSITY: The breasts are heterogeneously dense, which may obscure small masses. FINDINGS: No suspicious masses, microcalcifications, areas of architectural distortion, or skin thickening to suggest malignancy. IMPRESSION: No mammographic evidence of malignancy. RECOMMENDATION: Annual mammographic screening. BI-RADS: 1 (Negative) Lay letter mailed to patient WSN: [id number] Ordering Physician: Bianca Salazar Dictated By: ?Steffen Diaz MD Dictated Date/Time: ?10/27/24 2:27 pm Reviewed By: ?Steffen Diaz MD Signed By: ? Steffen Diaz MD Signed Date/Time: ? 10/27/24 2:27 pm Transcribed By: ? NADIAB Pct Date/Time: ? 10/27/24 2:25 pm Birads: Procedure Note Donotuseinterpreter, Image - 10/27/2024 PROCEDURE: MM Digital Mammo Screening INDICATION: Screening for breast cancer. No known palpableabnormalities. COMPARISON: Back to 09/29/2021. TECHNIQUE: Full-field digital CC and MLO 3D tomosynthesis images of bothbreasts were acquired. Computer-aided detection (CAD) was utilized in theinterpretation of this study. DENSITY: The breasts are heterogeneously dense, which may obscure smallmasses. FINDINGS: No suspicious masses, microcalcifications, areas ofarchitectural distortion, or skin thickening to suggest malignancy. IMPRESSION: No mammographic evidence of malignancy. RECOMMENDATION: Annual mammographic screening. BI-RADS: 1 (Negative) Lay letter mailed to patient WSN: [id number] Ordering Physician: Bianca Salazar Dictated By: Steffen Diaz MD Dictated Date/Time: 10/27/24 2:27 pm Reviewed By: Steffen Diaz MD Signed By: Steffen Diaz MD Signed Date/Time: 10/27/24 2:27 pm Transcribed By: BILLY Pct Date/Time: 10/27/24 2:25 pm Birads: Bianca CARDOSOP IMG BI PROCEDURES Final R esult * Comprehensive Metabolic Panel (10/20/2024 9:43 AM EST) Blood Venous blood specimen / Unknown Bianca LYLES LAB BLOOD ORDERABLES Michelle l Result documented in this encounter Visit Diagnoses Not on filedocumented in this encounter Care Teams Detention Worker Relationship Specialty Start Date End Date Bianca Salazar FNP [address] [place] [address] PCP - General Family Medicine 07/20/22 documented as of this encounter
--- OUTSIDE RECORDS SUMMARY | 2024-12-22 09:09 | XMS_ITS | Clinical Summary ---
Author Organization [employer] Address [address] [facility] 7[address] [place] [address] Care Team Providers Care Loft Patternmaker Name Role Phone Bianca Salazar ADMISSIONS GATE ATTENDANT Primary Care Provider [phone] [phone] Allergies Active Allergy Reactions Criticality Noted Date Comments Povidone Iodine Rash Low 06/22/2022 Cephalexin Rash Low 06/22/2022 Other reaction(s): fever, rash on torso Etodolac 06/22/2022 Other reaction(s): not sure Iodine 06/22/2022 Other reaction(s): Unknown Medications Cholecalciferol (Vitamin D) 10 MCG/ML liquid Take by mouth. A ctive aspirin-acetami nophen-caffeine (Excedrin Migraine) 250-250-65 MG tablet Take 1 tablet by mouth every 6 (six) hours if needed for headaches. Active zolpidem (Ambien) 5 MG tablet Take 5 mg by mouth if needed at bedtime for sleep. Active diphenoxylate-a tropine (Lomotil) 2.5-0.025 MG tablet Take 1 tablet [...] mouth in the morning. 12/28/19 23 Active Neomycin-Polymy anthony-HC 1 % solutionIndicat ions:Acute otitis externa of both ears, unspecified type Administer 3 drops into affected ear(s) 2 times daily. 10 mL 03/27/20 23 Active ibuprofen 800 MG tabletIndicatio ns:Migraine with aura, not intractable, without status migrainosus [...] 11/06/19 24 Active gabapentin (Neurontin) 100 MG capsuleIndicati ons:Degenerativ e disc disease at L5-S1 level TAKE 1 CAPSULE BY MOUTH AT BEDTIME 30 capsule 02/13/20 24 Active valACYclovir (Valtrex) 500 MG tabletIndicatio ns:Herpesviral vesicular dermatitis TAKE 1 TABLET BY MOUTH EVERY DAY IN THE MORNING 90 tablet 1 08/20/19 25 Active cholecalciferol (Vitamin D-3) 125 MCG (5000 UT) capsuleIndicati ons:Vitamin D deficiency Take 1 capsule (125 mcg) by mouth Once per day for 180 doses. /90 days 90 capsule 1 11/14/19 25 025 Active famotidine (Pepcid) 40 MG tablet TAKE 1 TABLET BY MOUTH EVERY DAY 90 tablet 11/20/19 25 Active FLUoxetine (PROzac) 20 MG capsuleIndicati ons:Dysthymic disorder TAKE 1 CAPSULE BY MOUTH EVERY DAY 90 capsule 11/20/19 25 Active butalbital-aspi rin-caffeine (Fiorinal) 50-325-40 MG capsuleIndicati ons:Migraine with aura and without status migrainosus, not intractable TAKE 1 CAPSULE BY MOUTH EVERY 4 (FOUR) HOURS IF NEEDED FOR MIGRAINE. 20 capsule 1 12/01/19 25 Active lidocaine (Lidoderm) 5 % patchIndication s:Degenerative disc disease at L5-S1 level APPLY 1 PATCH TOPICALLY ONCE PER DAY. APPLY TO PAINFUL AREA 12 HOURS PER DAY, REMOVE FOR 12 HOURS. 30 patch 12/01/19 25 026 Active lidocaine (Lidoderm) 5 % patchIndication s:Degenerative disc disease at L5-S1 level APPLY 1 PATCH TOPICALLY ONCE PER DAY. APPLY TO PAINFUL AREA 12 HOURS PER DAY, REMOVE FOR 12 HOURS. 30 patch 05/29/20 24 025 Discontinued butalbital-aspi rin-caffeine (Fiorinal) 50-325-40 MG capsuleIndicati ons:Migraine with aura and without status migrainosus, not intractable Take 1 capsule by mouth every 4 (four) hours if needed for migraine. 20 capsule 1 07/06/20 24 025 Discontinued Hospital, Clinic, or Other Facility Administered Medication Ordered Dose Route Frequency Start Date End Date Status cyanocobalamin (Vitamin B-12) injection 1,000 mcgIndications:Vitamin B12 deficiency 1000 mcg IM Every 30 days 11/12/2024 Active Active Problems Problem Noted Date Diagnosed Date [...] ordered as indicated. Advised pt to contact [facility] for specialist evaluation. Benign neoplasm of pituitary gland 06/22/2022 Recurrent cold sores 06/22/2022 Abnormal uterine bleeding 06/22/2022 Urinary incontinence, mixed 06/22/2022 Dysthymia 06/22/2022 Increased prolactin level 06/22/2022 Gastro-esophageal reflux disease without esophag itis 06/22/2022 Right sided sciatica 06/22/2022 Chronic fatigue 06/22/2022 Primary osteoarthritis of left knee 06/22/2022 Encounters Date Type Department Care Team Description 11/27/[address] [address] Bianca Salazar FNP Migraine with aura and without status migrainosus, not intractable; Degenerative disc disease at L5-S1 level 11/19/[address] [address] Bianca Salazar FNP Dysthymic disorder 11/13/2024 9:00 AM EDT Clinical Support [address] [address] Bianca Salazar FNP B12 deficiency 11/13/[address] [address] Bianca Salazar FNP Vitamin D deficiency 11/12/2024 Travel 11/06/[address] [address] Bianca Salazar FNP New Med Request 11/06/[address] [address] Bianca Salazar FNP Record Request 10/28/2024 2:00 PM EDT Telemedicine [address] [address] Bianca Salazar FNP Renal cyst (Primary Dx); Chronic fatigue; Increased prolactin level 10/24/2024 Orders Only [facility] [address] [place] [address] Bianca Salazar FNP 10/21/2024 Travel 10/07/2024 Travel from Last 3 Months Immunizations Name Administration Dates Next Due Influenza Whole 03/29/2020 Influenza injectable quadriv alent preservative free 03/29/2020,05/29/2019 Influenza, IIV3, injectable 07/07/2021,0 03/29/2020,05/29/2019,2017,06/12/2017,06/15/2015,05/26/2014,0 04/02/2012,04/20/2011,05/30/2010 Influenza, seasonal, injecta ble, preservative free 05/21/2013 Moderna Covid-19 Vaccine 12+ 07/11/2021,12/25/19 21,11/26/2020 Tdap 06/05/2021, 1,06/05/2011,2010 Zoster, Recombinant 07/19/2020,03/29/2020 Family History Relation Name [...] your housing situation today? I have meng radha 10/18/[address] you li [...] 05/22/2024 10:46 AM EDT Plan of Treatment Health Maintenance Due Date Last Done Comments [...] Additional history exists Dental X-Ray: Bitewings 06/01/2023 05/31/20 22, 05/23/2021, 05/11/2020, Additional history exists Dental Prophylaxis 03/19/2024 09/18/2023, 0 03/06/2023, 08/28/2022, Additional history exists COVID-19 Vaccine ( season) 2024 07/11/2021, 12/24/2020, 11/26/2020 Influenza Vaccine (#1) 2024 , 03/29/2020, 03/29/2020, Additional history exists Depression Screening 10/17/2024 10/18/2023, 10/18/19 24 SDOH Screening 10/17/2024 10/18/2023 Tobacco Screening 05/22/2025 05/22/2024 Colonoscopy 08/01/2025 08/01/2015, 07/19, 08/01/2015, Additional history exists Colorectal Cancer Screening 08/01/2025 Cervical Cancer Screening 07/26/2026 Pap Smear 07/26/2026 07/26/2021, 04/0 09/2014, 04/09/2012 Mammogram 10/27/2026 10/27/2024, 030 08/2023, 10/18/2023, Additional history exists DTaP/Tdap/Td Vaccines (5 - Td or Tdap) [...] METABOLIC PANEL Routine 10/20/2024 9:43 AM EST HEPATITIS C AB W/REFLEX TO HCV QUANT NAAT IF POSITIVE Routine 01/31/2024 10:42 AM EDT Screening for blood disease HIV P24 ANTIGEN/ANTIBODY WITH REFLEX TO CONFIRMATION Routine 01/31/2024 10:41 AM EDT Full PROPHYLAXIS - ADULT Routine 09/18/2023 8:30 [...] Recently Relevant to Health Maintenance Results * BI Mammogram Screening Tomosynthesis Bilateral [...] (Negative) Lay letter mailed to patient WSN: [id number] Ordering Physician: Bianca Salazar Dictated By: ?Steffen Diaz MD Dictated Date/Time: ?10/27/24 2:27 pm Reviewed By: ?Steffen Diaz MD Signed By: ? Steffen Diaz MD Signed Date/Time: ? 10/27/24 2:27 pm Transcribed By: ? [employer] Mill Representative Date/Time: ? 10/27/24 2:25 pm Birads: Procedure [...] (Negative) Lay letter mailed to patient WSN: [id number] Ordering Physician: Bianca Salazar Dictated By: Steffen Diaz MD Dictated Date/Time: 10/27/24 2:27 pm Reviewed By: Steffen Diaz MD Signed By: Steffen Diaz MD Signed Date/Time: 10/27/24 2:27 pm Transcribed By: CS[employer] Mill Representative Date/Time: 10/27/24 2:25 pm Birads: [facility] IMG BI PROCEDURES Final R esult * Comprehensive Metabolic Panel (10/20/2024 9:43 AM EST) Blood Venous blood specimen / Unknown [facility] LAB BLOOD ORDERABLES Michelle l Result * Hepatitis C Ab w/Reflex to HCV Quant NAAT if Positive (01/31/2024 10:42 AM EDT) HCV Ab Non Reactive Non Reactive [facility] 1 Blood 01/31/2024 10:4 2 AM EDT 01/31/2024 Narrative [facility] 1 - 02/01/2024 10:05 AM EDT Performed at: ??01 - [facility] [address], [address], [place] ??[id number] Sr. Manager Corporate Communications: Tay Edmond MD, Phone: ??[phone] [facility] LAB BLOOD ORDERABLES Michelle l Result [facility] 1 * HIV p24 Antigen/Antibody With Reflex to Confirmation (01/31/2024 10:41 AM EDT) HIV Ab/p24 Ag Screen Non Reactive Non Reactive [facility] 1 Comment: HIV-1/HIV-2 antibodies and HIV-1 p24 antigen were NOT detected. There is no laboratory evidence of HIV infection. HIV Negative 01/31/2024 10:4 1 AM EDT 01/31/2024 Narrative [facility] 1 - 02/01/2024 10:05 AM EDT Performed at: ??01 - [facility] [address], [place], [place] [id number] Sr. Manager Corporate Communications: Tay Edmond MD, Phone: ??[phone] Bianca Salazar ADMISSIONS GATE ATTENDANT LAB BLOOD ORDERABLES Michelle l Result [facility] 1 * Pap Smear (07/26/2021 12:00 AM EST) Swab Historical Provider LAB CYTOLOGY ORDERABLES F inal Result * Colonoscopy (08/01/2015) Anatomical Region Laterality Modality Endoscopy 08/01/2015 Impressions 09/19/2022 9:24 AM EST Negative, 10 yr rpt recommended Laurie James ENDOSCOPY PROCEDURE ORDERABLES F inal Result * THIN PREP PAP, WITH HPV (11/18/2014 12:00 AM EDT) Historical Provider LAB CYTOLOGY ORDERABLES F inal Result Performing Organization Address City/[facility] Co de Phone Number [facility] [address] [place] [address] from Last 3 Months or Most Recently Relevant to Health Maintenance Insurance [facility] STANDARD MEDICARE [facility] STAND ADULT Care Teams Loft Patternmaker Relationship Specialty Start Date End Date Bianca Salazar FNP [address] [place] [address] PCP - General Family Medicine 07/20/22
--- OUTSIDE RECORDS SUMMARY | 2024-12-22 09:09 | XMS_ITS | Encounter Summary ---
Author Organization [employer] Address [address] [place] [address] Care Team Providers Care Board Certified Music Therapist Name Role Phone Bianca Salazar Primary Care Provider [phone] [phone] Encounter Details Date Type Department Care Team [...] on filedocumented in this encounter Care Teams Board Certified Music Therapist Relationship Specialty Start Date End Date Bianca Salazar FNP [address] [place] [address] PCP - General Family Medicine 07/20/22 documented as of this encounter
--- OUTSIDE RECORDS SUMMARY | 2024-12-22 09:09 | XMS_ITS | Encounter Summary ---
Author Organization [employer] Address [address] [place] [address] Care Team Providers Care Pharmacy Intake Technician Name Role Phone Bianca Salazar Primary Care Provider [phone] [phone] Encounter Details Date Type Department Care Team [...] on filedocumented in this encounter Care Teams Pharmacy Intake Technician Relationship Specialty Start Date End Date Bianca Salazar FNP [address] [place] [address] PCP - General Family Medicine 07/20/22 documented as of this encounter
--- OUTSIDE RECORDS SUMMARY | 2024-12-22 09:09 | XMS_ITS | Encounter Summary ---
Author Organization [employer] Address [address] [place] [address] Care Team Providers Care Plate Mounter Name Role Phone Bianca Salazar Primary Care Provider [phone] [phone] Encounter Details Date Type Department Care Team [...] on filedocumented in this encounter Care Teams Plate Mounter Relationship Specialty Start Date End Date Bianca Salazar FNP [address] [place] [address] PCP - General Family Medicine 07/20/22 documented as of this encounter
--- OUTSIDE RECORDS SUMMARY | 2024-12-22 09:09 | XMS_ITS | Encounter Summary ---
Author Organization [employer] Address [address] [facility] [address] [facility] [address] [address] [place] [address] Care Team Providers Care Health Program Director Name Role Phone Bianca Salazar Primary Care Provider [phone] [phone] Encounter Details Date Type Department Care Team [...] on filedocumented in this encounter Care Teams Health Program Director Relationship Specialty Start Date End Date Bianca Salazar FNP [address] [place] [address] PCP - General Family Medicine 07/20/22 documented as of this encounter
--- OUTSIDE RECORDS SUMMARY | 2024-12-22 09:09 | XMS_ITS | Encounter Summary ---
Author Organization [employer] Address [address] [place] [address] Care Team Providers Care Skating Carhop Name Role Phone Bianca Salazar Primary Care Provider [phone] [phone] Encounter Details Date Type Department Care Team [...] on filedocumented in this encounter Care Teams Skating Carhop Relationship Specialty Start Date End Date Bianca Salazar FNP [address] [place] [address] PCP - General Family Medicine 07/20/22 documented as of this encounter
== END ==
LOC: HO.SL 08:41
PROVIDERS: PCP Family Medicine; Visit Provider Psychiatry & Neurology Neurology
DX: R06.83 Snoring (principal); G47.10 Hypersomnia, unspecified
CPT/HCPCS: 95806

== ENCOUNTER → 2024-12-22 09:10 | Outpatient (BNV) | payer MEDICARE, MEDICAID, SELFPAY | PROVIDERS: PCP Family Medicine; Visit Provider Psychiatry & Neurology Neurology | DX: R06.83 Snoring (principal) | CPT/HCPCS: 95806 ==

== ENCOUNTER 2025-01-22 08:22 | Outpatient (AMB) | payer MEDICARE, MEDICAID, SELFPAY ==
[2025-01-22 08:25] VITALS: BP 130/78; PULSE 65; O2SAT 97; BMI 24.0
--- NOTE | 2025-01-22 08:25 | MHC.OFFVIS ---
Vital Signs 01/22/25 08:25 Height 5 ft 2 in Weight 131 lb BMI 24.0 BP 130/78 Blood Pressure Location Rt brachial Position Sitting Pulse 65 Pulse Source Pulse Oximeter Pulse Oximetry (%) 97 Oxygen Delivery Method Room Air Intake Visit Reasons: Botox Plastic Surgery Specialist Required: No Accompanied by: Self / Same As Patient Allergies cephalexin [From Keflex] Allergy (Intermediate, Verified 01/22/25 08:33) Fever etodolac Allergy (Unknown, Verified 01/22/25 08:33) Unknown iodine Allergy (Unknown, Verified 01/22/25 08:33) Unknown povidone-iodine [From Betadine] Allergy (Unknown, Verified 01/22/25 08:33) Rash Medication List - Last Reconciled 01/22/25 by Lizzette Diaz MD ecrgnyx-enggjzqynejui-ggaibzxy 250-250-65 mg (Excedrin Migraine) 2 tabs PO Q6H PRN prxsioajds-ipdypee-nlryeorz 50-325-40 mg 1-2 caps q 8hrs as needed for headaches orally PRN; do not exceed 3 doses per 24 hrs cholecalciferol (vitamin D3) 250 mcg PO DAILY diphenoxylate-atropine 2.5-0.025 mg (Lomotil) 1 tab PO QID PRN famotidine 20 mg PO DAILY fluoxetine 20 mg PO DAILY ibuprofen 800 mg PO TID PRN naproxen sodium 440 mg (2 x 220 mg) PO Q12H PRN 30 days onabotulinumtoxinA (Botox) 155 units IM ONCE 12 weeks riboflavin (vitamin B2) 400 mg PO DAILY 30 days rimegepant (Nurtec ODT) 75 mg PO ONCE PRN 30 days MDD 1 tab valacyclovir 500 mg PO DAILY zolpidem 5 mg PO BEDTIME PRN HPI Comments Details: ? 55y/o female comes for treatment of migraines with botox.she also reports poor sleep with loud snoring frequent arousals and excessive dyatime sleepiness. .How many migraine days prior to botox- 25-30 days How long do the migraines last 1-2 days Intensity of migraine 8-05/28 ER visits related to migraine 2-3 Effectiveness of botox from last two treatment(s) How many migraine days since receiving treatment:3-5 Change? in intensity of migraine?decreased Change in frequency of migraine?decreased Change in use of acute medication for migraine?decreased Change in quality of life?better ER visits related to migraine?0 Have at least three months elapsed since last treatment (Last botox date - frequency of injections)3 mths ??? Most frequent reported adverse reactions following injection of botox for chronic migraine include neck pain (9%), headache(5%), eyelid ptosis(4%), migraine(4%), muscular weakness(4%), musculuskeletal stiffness(4%), bronchitis(3%), injection site pain (3%), musculoskeletal pain(3%), myalgia(3%), facial paresis(2%), HTN(2%) and muscle spasms(2%) were discussed in detail. ??? Botulinum toxin typeA 200units Lot no [id number] expiration November 2026 was diluted with 4 cc of normal saline . ??? Muscles injected- ??? Frontalis 4 sites ??? Procerus 1 site ??? Advanced Practice Registered Nurse- 2 sites ??? Temporalis- 8 sites ??? Occipitalis- 6 sites ??? Cervical paraspinals- 4 sites ??? Trapezius- 6 sites- ??? 5 units each in 31 site ??? Total use- 155units ??? Discarded-45units [facility] Medical History Hypersomnia Snoring Chronic migraine without aura, intractable, without status migrainosus Chronic migraine without aura Hyperprolactinemia IBS (irritable bowel syndrome) Ovarian cyst Syncope Herniated lumbar disc without myelopathy Palpitations Fibromyalgia Depression Herpetic gingivostomatitis GERD (gastroesophageal reflux disease) Surgical History H/O laparoscopy History of section Family History Father Thyroid cancer Hypertension Glaucoma Mother Endometrial cancer Kidney stones Hypertension Fibromyalgia Sister Kidney stones Acute Crohn's disease Paternal Grandmother Heart disease Maternal Grandmother Heart disease Diabetes Social History Alcohol intake: never Patient Tobacco Use Status: Never used Tobacco Physical Exam Vital Signs: Last Vital Signs Pulse 65 01/22/25 08:25 BP 130/78 06/06/25 08:25 Pulse Ox 97 01/22/25 08:25 Oxygen Delivery Method Room Air 01/22/25 08:25 BMI result Body Mass Index 24.0 Const General: cooperative and no acute distress Orientation/consciousness: patient oriented x3 HEENT Head: Yes normocephalic Resp Effort & Inspection: normal respiratory effort and able to speak in complete sentences Neuro General: patient oriented x3, gait normal and CN's II-XI intact bilaterally Cognition (Neuro): normal cognition Motor exam (neuro): 5/5 motor strength present throughout Office Procedures Botulinum toxin Injection 78951 - Migraine Procedure code (CPT) selection complete Office Meds onabotulinumtoxinA 200 unit solution for injection Performing Provider: Lizzette Diaz MD Performing Location: [facility] Administered by: Lizzette Diaz MD on 01/22/25 11:36 Dose Route Admin Location Dispensed Lot Number Expiration Date [facility] Library Director 155 unit subcut 200 units [id number] ALLERGAN/BOTOX Comments: see HPI Assessment & Plan Assessment & Plan (1) Chronic migraine without aura, intractable, without status migrainosus: Code(s): G43.719 - Chronic migraine without aura, intractable, without status migrainosus Category: Medical (2) Snoring: Code(s): R06.83 - Snoring Category: Medical (3) Hypersomnia: Code(s): G47.10 - Hypersomnia, unspecified Category: Medical Plan Patient tolerated the procedure well she will call with any side effects Home sleep test was normal Orders: Orders AMB Botulinum toxin Injection Today G43.719 - Chronic migraine without aura, intractable, without status migrainosus Medications: New onabotulinumtoxinA 200 units subcut ONCE 1 ea 0RF migraine G43.719 - Chronic migraine without aura, intractable, without status migrainosus Coding Level of Care Code Est Pt Level 1 (14734) Diagnoses Chronic migraine without aura, intractable, without status migrainosus G43.719 Snoring R06.83 Hypersomnia G47.10 CPT Codes Botox Injection - Botox 3: 85558 - Migraine ([id number])
--- OUTSIDE RECORDS SUMMARY | 2025-01-22 08:28 | XMS_ITS | Encounter Summary ---
Author Organization [employer] Address [address] [place] [address] Care Team Providers Care Dairy Equipment Mechanic Name Role Phone Bianca Salazar DIESEL SERVICE TECHNICIAN Primary Care Provider [phone] [phone] Encounter Details Date Type Department Care Team (Late st Contact Info) Description 04/24/2024 Orders Only [facility] [address] [place] [address] Bianca Salazar FNP [address] [place], [place] [id number] Scalp psoriasis Social History Tobacco Use Types [...] Care Team (Late st Contact Info) Description 02/01/2025 9:00 AM EDT Nurse Only Mary [facility] [address] [place] [address] documented as of this encounter Procedures Procedure Name Priority Date/Time Associated Diagnosis Comments AMB REFERRAL TO DERMATOLOGY Routine 11/26/2023 Scalp psoriasis documented in this encounter Results * Referral to Dermatology (11/26/2023) Bianca LYLES OUTPATIENT REFERRAL ORDER JOEL Final Result documented in this encounter Visit Diagnoses Diagnosis Scalp psoriasis Other psoriasis documented in this encounter Care Teams Dairy Equipment Mechanic Relationship Specialty Start Date End Date Bianca Salazar FNP [address] [place] [address] PCP - General Family Medicine 07/20/22 documented as of this encounter
== END 2025-01-22 09:33 | disposition home or self-care (01) ==
LOC: HO.HSMS 08:23
PROVIDERS: PCP Family Medicine; Visit Provider Psychiatry & Neurology Neurology
DX: G43.719 Chronic migraine without aura, intractable, without status migrainosus (principal)
CPT/HCPCS: 64615

== ENCOUNTER → 2025-01-22 08:22 | Outpatient (BNVA) | payer MEDICARE, MEDICAID, SELFPAY | PROVIDERS: PCP Family Medicine; Visit Provider Psychiatry & Neurology Neurology | DX: G43.719 Chronic migraine without aura, intractable, without status migrainosus (principal); G47.10 Hypersomnia, unspecified; R06.83 Snoring | CPT/HCPCS: 64615; 99211; J0585 ==

== ENCOUNTER 2025-05-04 09:52 | Outpatient (AMB) | payer MEDICARE, MEDICAID, SELFPAY ==
[2025-05-04 09:54] VITALS: BP 110/72; PULSE 69; O2SAT 98; BMI 23.5
--- NOTE | 2025-05-04 09:54 | A.OFFVIS_ITS ---
Vital Signs 05/04/25 09:54 Height 5 ft 2 in Weight 128 lb 4 oz BMI 23.5 BP 110/72 Blood Pressure Location Rt brachial Position Sitting Pulse 69 Pulse Source Pulse Oximeter Pulse Oximetry (%) 98 Oxygen Delivery Method Room Air Intake Visit Reasons: Botox Intake Note: Botox Brooch Maker Novelty Required: No Accompanied by: Self / Same As Patient Allergies cephalexin (From Keflex) Allergy (Intermediate, Verified 05/04/25 09:54) Fever etodolac Allergy (Unknown, Verified 05/04/25 09:54) Unknown iodine Allergy (Unknown, Verified 05/04/25 09:54) Unknown povidone-iodine (From Betadine) Allergy (Unknown, Verified 05/04/25 09:54) Rash Medication List - Last Reconciled 05/04/25 by Lizzette Diaz MD ynknqso-qaqtqhkcfsiub-fjoosjea 250-250-65 mg (Excedrin Migraine) 2 tabs PO Q6H PRN jlcqcbksda-qxyhdab-fpevzpgo 50-325-40 mg 1-2 caps q 8hrs as needed for headaches orally PRN; do not exceed 3 doses per 24 hrs cholecalciferol (vitamin D3) 250 mcg PO DAILY diphenoxylate-atropine 2.5-0.025 mg (Lomotil) 1 tab PO QID PRN famotidine 20 mg PO DAILY fluoxetine 20 mg PO DAILY ibuprofen 800 mg PO TID PRN naproxen sodium 440 mg (2 x 220 mg) PO Q12H PRN 30 days onabotulinumtoxinA (Botox) 155 units IM ONCE 12 weeks riboflavin (vitamin B2) 400 mg PO DAILY 30 days rimegepant (Nurtec ODT) 75 mg PO ONCE PRN 30 days MDD 1 tab triamcinolone acetonide 0.1% topical valacyclovir 500 mg PO DAILY zolpidem 5 mg PO BEDTIME PRN HPI Comments Details: ? 55y/o female comes for treatment of migraines with botox.she also reports poor sleep with loud snoring frequent arousals and excessive dyatime sleepiness. .How many migraine days prior to botox- 25-30 days How long do the migraines last 1-2 days Intensity of migraine 8-10/10 ER visits related to migraine 2-3 Effectiveness of botox from last two treatment(s) How many migraine days since receiving treatment:3-5 Change? in intensity of migraine?decreased Change in frequency of migraine?decreased Change in use of acute medication for migraine?decreased Change in quality of life?better ER visits related to migraine?0 Have at least three months elapsed since last treatment (Last botox date - frequency of injections)3 mths ??? Most frequent reported adverse reactions following injection of botox for chronic migraine include neck pain (9%), headache(5%), eyelid ptosis(4%), migraine(4%), muscular weakness(4%), musculuskeletal stiffness(4%), bronchitis(3%), injection site pain (3%), musculoskeletal pain(3%), myalgia(3%), facial paresis(2%), HTN(2%) and muscle spasms(2%) were discussed in detail. ??? Botulinum toxin typeA 200units Lot no [id number] expiration Jun 2027 was diluted with 4 cc of normal saline . ??? Muscles injected- ??? Frontalis 4 sites ??? Procerus 1 site ??? Laminating Machine Operator Helper- 2 sites ??? Temporalis- 8 sites ??? Occipitalis- 6 sites ??? Cervical paraspinals- 4 sites ??? Trapezius- 6 sites- ??? 5 units each in 31 site ??? Total use- 155units ??? Discarded-45units [facility] Medical History Hypersomnia Snoring Chronic migraine without aura, intractable, without status migrainosus Chronic migraine without aura Hyperprolactinemia IBS (irritable bowel syndrome) Ovarian cyst Syncope Herniated lumbar disc without myelopathy Palpitations Fibromyalgia Depression Herpetic gingivostomatitis GERD (gastroesophageal reflux disease) Surgical History H/O laparoscopy History of section Family History Father Thyroid cancer Hypertension Glaucoma Mother Endometrial cancer Kidney stones Hypertension Fibromyalgia Sister Kidney stones Acute Crohn's disease Paternal Grandmother Heart disease Maternal Grandmother Heart disease Diabetes Social History Alcohol intake: never Patient Tobacco Use Status: Never used Tobacco Physical Exam Vital Signs: Last Vital Signs Pulse 69 05/04/25 09:54 BP 110/72 05/04/25 09:54 Pulse Ox 98 05/04/25 09:54 Oxygen Delivery Method Room Air 05/04/25 09:54 BMI result Body Mass Index 23.5 Const General: cooperative and no acute distress Orientation/consciousness: patient oriented x3 HEENT Head: Yes normocephalic Resp Effort & Inspection: normal respiratory effort and able to speak in complete sentences Neuro General: patient oriented x3, gait normal and CN's II-XI intact bilaterally Cognition (Neuro): normal cognition Motor exam (neuro): 5/5 motor strength present throughout Office Procedures Botulinum toxin Injection 53647 - Migraine Procedure code (CPT) selection complete Office Meds onabotulinumtoxinA 200 unit solution for injection Performing Provider: Lizzette Diaz MD Performing Location: [facility] Administered by: Lizzette Diaz MD on 05/04/25 10:21 Dose Route Admin Location Dispensed Lot Number Expiration Date [facility] Brickmason Supervisor 155 unit subcut 200 units [id number] ALLERGAN /BOTOX Total Dispensed Waste 200 units 22.5 % Comments: see HPI Assessment & Plan Assessment & Plan (1) Chronic migraine without aura, intractable, without status migrainosus: Code(s): G43.719 - Chronic migraine without aura, intractable, without status migrainosus Category: Medical Plan Patient tolerated the procedure well she will call with any side effects Home sleep test was normal Orders: Orders AMB Botulinum toxin Injection Today G43.719 - Chronic migraine without aura, intractable, without status migrainosus Coding Level of Care Code Est Pt Level 1 (77040) Diagnoses Chronic migraine without aura, intractable, without status migrainosus G43.719 CPT Codes Botox Injection - Botox 3: 85306 - Migraine ([id number])
--- OUTSIDE RECORDS SUMMARY | 2025-05-04 12:45 | XMS_ITS | Encounter Summary ---
Author Organization [employer] Address [address] [place] [address] [address] [place] [address] Care Team Providers Care Auto Air Conditioning Mechanic Name Role Phone Bianca Salazar Primary Care Provider [phone] [phone] Encounter Details Date Type Department Care Team [...] Care Team (Late st Contact Info) Description 05/12/2025 9:00 AM EDT Clinical Support [address] [address] 06/11/2025 11:00 AM EDT Office Visit [facility] [address] [place] [address] Bianca Salazar FNP [address] [place] [address] documented as of this encounter Visit Diagnoses Not on filedocumented in this encounter Care Teams Auto Air Conditioning Mechanic Relationship Specialty Start Date End Date Bianca Salazar FNP [address] [place] [address] PCP - General Family Medicine 07/20/22 documented as of this encounter
--- OUTSIDE RECORDS SUMMARY | 2025-05-04 12:45 | XMS_ITS | Clinical Summary ---
Author Organization [employer] Address [address] [facility] 7t [place] [address] Care Team Providers Care Upholstery Mechanic Name Role Phone Bianca Salazar OFFSET PRESS OPERATOR HELPER Primary Care Provider [phone] [phone] Allergies Active Allergy Reactions Criticality Noted Date Comments Povidone Iodine Rash Low 06/22/2022 Cephalexin Rash Low 06/22/2022 Other reaction(s): fever, rash on torso Etodolac 06/22/2022 Other reaction(s): not sure Iodine 06/22/2022 Other reaction(s): Unknown Medications aspirin-acetamin ophen-caffeine (Excedrin Migraine) 250-250-65 MG tablet Take 1 tablet by mouth every 6 (six) hours if needed for headaches. Active zolpidem (Ambien) 5 MG tablet Take 5 mg by mouth if needed at bedtime for sleep. Active cyclobenzaprine (Flexeril) 10 MG tablet 1 tablet. 9 Active Elastic Bandages & Supports (Medical Compression Stockings) misc 5 Active Botox 200 units injection 3 Active riboflavin (Vitamin B-2) 400 MG tablet Take 1 tablet by mouth Once per day. 3 Active Neomycin-Polymyx in-HC 1 % solutionIndicati ons:Acute otitis externa of both ears, unspecified type Administer 3 drops into affected ear(s) 2 times daily. 10 mL 3 Active triamcinolone (Kenalog) 0.1 % lotion 4 Active Nurtec 75 MG tablet dispersible 4 Active gabapentin (Neurontin) 100 MG capsuleIndicatio ns:Degenerative disc disease at L5-S1 level TAKE 1 CAPSULE BY MOUTH AT BEDTIME 30 capsule 4 Active cholecalciferol (Vitamin D-3) 125 MCG (5000 UT) capsuleIndicatio ns:Vitamin D deficiency Take 1 capsule (125 mcg) by mouth Once per day for 180 doses. /90 days 90 capsule 1 5 05/12/20 25 Active butalbital-aspir in-caffeine (Fiorinal) 50-325-40 MG capsuleIndicatio ns:Migraine with aura and without status migrainosus, not intractable TAKE 1 CAPSULE BY MOUTH EVERY 4 (FOUR) HOURS IF NEEDED FOR MIGRAINE. 20 capsule 1 5 Active lidocaine (Lidoderm) 5 % patchIndications :Degenerative disc disease at L5-S1 level APPLY 1 PATCH TOPICALLY ONCE PER DAY. APPLY TO PAINFUL AREA 12 HOURS PER DAY, REMOVE FOR 12 HOURS. 30 patch 5 01/05/20 26 Active butalbital-aspir in-caffeine (Fiorinal) 50-325-40 MG capsule Take 1 capsule by mouth if needed. 5 Active betamethasone, augmented, (Diprolene) 0.05 % lotion Apply topically Once per day. 5 Active naproxen sodium (Aleve) 220 MG tabletIndication s:Migraine with aura, not intractable, without status migrainosus,Dege nerative disc disease at L5-S1 level Take 1 tablet (220 mg) by mouth with breakfast and with evening meal. 60 tablet 5 Active FLUoxetine (PROzac) 20 MG capsuleIndicatio ns:Dysthymic disorder TAKE 1 CAPSULE BY MOUTH EVERY DAY 90 capsule 5 Active famotidine (Pepcid) 40 MG tablet TAKE 1 TABLET BY MOUTH EVERY DAY 90 tablet 5 Active valACYclovir (Valtrex) 500 MG tabletIndication s:Herpesviral vesicular dermatitis Take 1 tablet (500 mg) by mouth in the morning. 90 tablet 5 Active ibuprofen 800 MG tabletIndication s:Migraine with aura, not intractable, without status migrainosus TAKE 1 TABLET BY MOUTH EVERY 8 HOURS NEEDED FOR PAIN 90 tablet 1 5 Active Hospital, Clinic, or Other Facility Administered Medication Ordered Dose Route Frequency Start Date End Date Status cyanocobalamin (Vitamin B-12) injection 1,000 mcgIndications:Vitamin B12 deficiency 1000 mcg IM Every 30 days 11/12/2024 Active cyanocobalamin (Vitamin B-12) injection 1,000 mcgIndications:B12 deficiency 1000 mcg IM Once 04/12/2025 04/12/2025 Ended Active Problems Problem Noted Date Diagnosed Date [...] ordered as indicated. Advised pt to contact [facility] for specialist evaluation. Benign neoplasm of pituitary gland 06/22/2022 Recurrent cold sores 06/22/2022 Abnormal uterine bleeding 06/22/2022 Urinary incontinence, mixed 06/22/2022 Dysthymia 06/22/2022 Increased prolactin level 06/22/2022 Gastro-esophageal reflux disease without esophag itis 06/22/2022 Right sided sciatica 06/22/2022 Chronic fatigue 06/22/2022 Primary osteoarthritis of left knee 06/22/2022 Encounters Date Type Department Care Team Description 04/12/2025 9:00 AM EDT Nurse Only [address] [address] Sylvie Mckeon LPN B12 deficiency 04/12/2025 Travel 04/05/2025 Travel 03/20/[address] [address] Bianca Salazar FNP Migraine with aura, not intractable, without status migrainosus 03/18/2025 Patient Outreach [facility] Case Management [address] [place] [address] Diane Amos 03/18/[address] [address] Bianca Salazar FNP Herpesviral vesicular dermatitis 03/10/2025 9:00 AM EDT Clinical Support [address] [address] Sylvie Mckeon LPN B12 deficiency 03/10/[address] [address] Bianca Salazar FNP 03/09/2025 Travel 02/22/[address] [address] Bianca Salazar FNP Herpesviral vesicular dermatitis 02/22/[address] [address] Fransisca Campos CNP Dysthymic disorder 02/14/[address] [address] Anne-Marie Toure FNP Dysthymic disorder 02/03/2025 9:00 AM EDT Nurse Only [address] [address] Sylvie Mckeon LPN B12 deficiency 02/03/[address] [address] Bianca Salazar FNP Irritable bowel syndrome with diarrhea (Primary Dx); Migraine with aura, not intractable, without status migrainosus; Degenerative disc disease at L5-S1 level 02/03/[address] [address] Bianca Salazar FNP 02/03/[address] [address] Cherri Menjivar MD Migraine with aura, not intractable, without status migrainosus; Degenerative disc disease at L5-S1 level 02/02/2025 Travel from Last 3 Months Immunizations Immunization Administration Dates Next Due Influenza Whole 03/29/2020 [...] drink = 0.6 oz pur e alcohol) Alcohol Answer Date Recorded How often do you have a drink containing alcohol ? 0 01/27/2025 How many drinks containing a lcohol do you have on a typical day when you are drinking? 0 01/27/2025 How often do you have six or more drinks on one occasion? 0 01/27/2025 Housing Stability Answer Date Recorded What is your housing situation today? I have meng radha 01/27/[address] you li ve. Do you have problems with any of the following? None of the above 01/27/2025 Food Insecurity Answer Date Recorded Within the past 12 months, y ou worried that your food would run out before you got money to buy more: Never True 01/27/2025 Within the past 12 months,th e food you bought just didn't last and you didn't have enough money to get more: Never True 06/2025 Transportation Answer Date Recorded In the past 12 months, has l ack of transportation kept you from medical appts, meetings, work or from getting things needed for daily living? No 01/27/2025 Utilities Answer Date Recorded In the past 12 months, has t he electric, gas, oil or water company threatened to shut off services in your home? No 01/27/2025 Depression Answer Date Recorded Patient Health Questionnaire-2 Score 0 01/27/2025 Internet Access Answer Date Recorded Internet Access Q1 Yes 01/27/2025 Internet Access Q2 Not on file 01/27/2025 Comments Unknown Sex and Gender Information Value Date Recorded Sex Assigned at Female 08/17/2022 2:53 PM EST Legal Sex Female 5:35 PM EDT Gender Identity Female 08/17/2022 2:53 PM EST Sexual Orientation Choose not to disclose 2021 2:53 PM EST Last Filed Vital Signs Vital Sign Reading Time Taken Comments Blood Pressure 110/80 05/22/2024 10:46 AM EDT Pulse 70 01/27/2025 12:05 PM EDT Temperature 36.6 C (97.8 F) 01/27/2025 12:05 PM EDT Respiratory Rate 16 05/22/2024 10:46 AM EDT Oxygen Saturation 97% 01/27/2025 12:05 PM EDT Inhaled Oxygen Concentration - - Weight 59.9 kg (132 lb) 01/27/2025 12:05 PM EDT Height 157.5 cm (5' 2 ) 01/27/2025 12:05 PM EDT Body Mass Index 24.14 01/27/2025 12:05 PM EDT Plan of Treatment Upcoming Encounters Date Type Department Care Team (Late st Contact Info) Description 05/12/2025 9:00 AM EDT Clinical Support [address] [address] 06/11/2025 11:00 AM EDT Office Visit [address] [address] Bianca Salazar, TRUPTI [address] [place] [address] Health Maintenance Due Date Last Done Comments CT Colonography 1970 FIT DNA/Cologuard 1970 FIT 1970 FOBT 1970 Sigmoidoscopy 1970 Hepatitis B Vaccines (1 of 3 - [...] 03/06/2023, 08/28/2022, Additional history exists COVID-19 Vaccine (2024- season) 2025 07/11/2021, 12/24/2020, 11/26/2020 Influenza Vaccine (#1) 2025 , 03/29/2020, 03/29/2020, Additional history exists Colonoscopy 08/01/2025 08/01/2015, 07/19, 08/01/2015, Additional history exists Colorectal Cancer Screening 08/01/2025 Disability Screening 10/21/2025 10/21/2024 Alcohol/Substance Use Screening 01/27/2026 01/27/2025 Depression Screening 01/27/2026 01/27/2025, 01/28/20 SDOH Screening 01/27/2026 01/27/2025 Tobacco Screening 01/27/2026 01/27/2025 Cervical Cancer Screening 07/26/2026 Pap Smear 07/26/2026 07/26/2021, 04/0 09/2014, 04/09/2012 Mammogram 10/27/2026 10/27/2024, 08/2023, 10/18/2023, Additional history exists DTaP/Tdap/Td Vaccines [...] patient's age to complete this topic Meningococcal B Vaccine Aged Out No l onger eligible based on patient's age to complete [...] TOMOSYNTHESIS BILATERAL Routine 10/27/2024 8:23 AM EDT HEPATITIS C AB W/REFLEX TO HCV QUANT [...] EDT PROCEDURE: MM Digital Mammo Screening INDICATION: Screening for breast cancer. No known palpable abnormalities. COMPARISON: Back to 09/29/2021. [...] (Negative) Lay letter mailed to patient WSN: [id number] Ordering Physician: Bianca Salazar Dictated By: Steffen Diaz MD Dictated Date/Time: 10/27/24 2:27 pm Reviewed By: Steffen Diaz MD Signed By: Steffen Diaz MD Signed Date/Time: 10/27/24 2:27 pm Transcribed By: BILLY Restoration Officer Date/Time: 10/27/24 2:25 pm Birads: Procedure Note Donrichardinterpreter, Image - 10/27/2024 PROCEDURE: MM Digital Mammo [...] (Negative) Lay letter mailed to patient WSN: [id number] Ordering Physician: Bianca Salazar Dictated By: Steffen Diaz MD Dictated Date/Time: 10/27/24 2:27 pm Reviewed By: Steffen Diaz MD Signed By: Steffen Diaz MD Signed Date/Time: 10/27/24 2:27 pm Transcribed By: BILLY Restoration Officer Date/Time: 10/27/24 2:25 pm Birads: Bianca CARDOSOP IMG BI PROCEDURES Final R esult * Hepatitis C Ab w/Reflex to HCV Quant NAAT if Positive (01/31/2024 10:42 AM EDT) HCV Ab Non Reactive Non Reactive [facility] 1 Blood 01/31/2024 10:4 2 AM EDT 01/31/2024 Narrative [facility] 1 - 02/01/2024 10:05 AM EDT Performed at: 01 - [facility] [address], [place], [place] [id number] Community Pharmacist: Tay [place] MD, Phone: [phone] Bianca Salazar OFFSET PRESS OPERATOR HELPER LAB BLOOD ORDERABLES Michelle l Result [facility] [...] - 02/01/2024 10:05 AM EDT Performed at: - [facility] [address], [address], [place], [place] [id number] Community Pharmacist: Tay [place] MD, Phone: [phone] Bianca Martin OFFSET PRESS OPERATOR HELPER LAB BLOOD ORDERABLES Michelle l Result Performing Organization Address City/[facility]/ZIP Co de Phone Number [facility] 1 * Pap Smear (07/26/2021 12:00 AM EST) Swab Historical Provider MD LAB CYTOLOGY ORDERABLES F inal Result * Colonoscopy (08/01/2015) Anatomical Region Laterality Modality Endoscopy 08/01/2015 Impressions 09/19/2022 9:24 AM EST Negative, 10 yr rpt recommended Laurie Ramirez ENDOSCOPY PROCEDURE ORDERABLES F inal Result * THIN PREP PAP, WITH HPV (11/18/2014 12:00 AM EDT) Historical Provider MD LAB CYTOLOGY ORDERABLES F inal Result [facility] [address] [place] [address] from Last 3 Months or Most Recently Relevant to Health Maintenance Insurance [facility] STANDARD MEDICARE Care Teams Upholstery Mechanic Relationship Specialty Start Date End Date Bianca Salazar FNP [address] [facility] [place] [address] PCP - General Family Medicine 07/20/22
--- OUTSIDE RECORDS SUMMARY | 2025-05-04 12:45 | XMS_ITS | Encounter Summary ---
Author Organization [email or web address] Address [address] [place] [address] [place] [address] Care Team Providers Care Nuclear Physics Teacher Name Role Phone Bianca Salazar Primary Care Provider [phone] [phone] Encounter Details Date Type Department Care Team [...] Description 05/12/2025 9:00 AM EDT Clinical Support [facility] [address] [place] [address] 06/11/2025 11:00 AM EDT Office Visit [facility] [address] [place] [address] Bianca Salazar FNP [address] [place] [address] documented as of this encounter Visit Diagnoses Not on filedocumented in this encounter Care Teams Nuclear Physics Teacher Relationship Specialty Start Date End Date Bianca Salazar FNP [address] [place] [address] PCP - General Family Medicine 07/20/22 documented as of this encounter
--- OUTSIDE RECORDS SUMMARY | 2025-05-04 12:45 | XMS_ITS | Encounter Summary ---
Author Organization [employer] Address [address] [place] [address] Care Team Providers Care Practice Professional Name Role Phone Bianca Salazar ASBESTOS BRAKE LINING FINISHER HELPER Primary Care Provider [phone] [phone] Encounter Details Date Type Department Care Team (Late st Contact Info) Description 03/18/2025 [facility] [address] [place] [address] Diane Amos Social History Tobacco Use Types Packs/Day Years [...] is your housing situation today? I have mengkori garcia 01/27/[address] you li [...] Description 05/12/2025 9:00 AM EDT Clinical Support [address] [address] 06/11/2025 11:00 AM EDT Office Visit [address] [address] Bianca Salazar FNP [address] [place] [address] documented as of this encounter Visit Diagnoses Not on filedocumented in this encounter Care Teams Practice Professional Relationship Specialty Start Date End Date Bianca Salazar FNP [address] [place] [address] PCP - General Family Medicine 07/20/22 documented as of this encounter
--- OUTSIDE RECORDS SUMMARY | 2025-05-04 12:45 | XMS_ITS | Encounter Summary ---
Author Organization [employer] Address [address] [facility] [address]t [place] [address] Care Team Providers Care Technical Sales Director Name Role Phone Bianca Salazar ECO INDUSTRIAL DEVELOPMENT CONSULTANT Primary Care Provider +1 -[phone] Reason for Visit * Reason Onset Date Comments Med Refill 02/03/2025 Encounter Details Date Type Department Care Team (Late st Contact Info) Description 02/03/2025 Refill [facility] [address] [place] [address] Cherri Menjivar MD [address] [place] [address] Migraine with aura, not intractable, without status migrainosus; Degenerative disc disease at L5-S1 level Social History Tobacco Use Types Packs/Day Years [...] housing situation today? I have meng garcia 01/27/[address] you [...] PM EST documented as of this encounter Miscellaneous Notes * Telephone Encounter - Josephine Casiano [place] - 02/03/2025 8:39 AM EDT Duplicate documented in this encounter Plan of Treatment Upcoming Encounters Date Type Department Care Team (Late st Contact Info) Description 05/12/2025 9:00 AM EDT Clinical Support [address] [address] 06/11/2025 11:00 AM EDT Office Visit [address] [address] Bianca Salazar FNP [address] [place] [address] documented as of this encounter Visit Diagnoses Diagnosis Migraine with aura, not intractable, without status migrainosus Degenerative disc disease at L5-S1 level documented in this encounter Care Teams Technical Sales Director Relationship Specialty Start Date End Date Bianca Salazar FNP [address] [place] [address] PCP - General Family Medicine 07/20/22 documented as of this encounter
--- OUTSIDE RECORDS SUMMARY | 2025-05-04 12:45 | XMS_ITS | Encounter Summary ---
Author Organization [employer] Address [address] [place] [address] [address] [address] Care Team Providers Care Table Inspector Name Role Phone Bianca Salazar Primary Care Provider +1 [phone] Encounter Details Date Type Department Care Team [...] Description 05/12/2025 9:00 AM EDT Clinical Support [facility] [address] [place] [address] 06/11/2025 11:00 AM EDT Office Visit [facility] [address] [place] [address] Bianca Salazar FNP [address] [place] [address] documented as of this encounter Visit Diagnoses Not on filedocumented in this encounter Care Teams Table Inspector Relationship Specialty Start Date End Date Bianca Salazar FNP [address] [place] [address] PCP - General Family Medicine 07/20/22 documented as of this encounter
--- OUTSIDE RECORDS SUMMARY | 2025-05-04 12:45 | XMS_ITS | Encounter Summary ---
Author Organization [employer] Address [address] [facility] [facility] [address] 7[address] [place] [address] Care Team Providers Care Slag Expander Name Role Phone Bianca Salazar Primary Care Provider [phone] [phone] Reason for Visit * Reason Onset Date Comments Med Refill 02/03/2025 Encounter Details Date Type Department Care Team (Late st Contact Info) Description 02/03/2025 [facility]ill [facility] [address] [place] [address] Bianca Salazar FNP [address] [place] [address] Social History Tobacco Use Types Packs/Day Years [...] Description 05/12/2025 9:00 AM EDT Clinical Support [address] [address] 06/11/2025 11:00 AM EDT Office Visit [address] [address] Bianca Salazar FNP [address] [place] [address] documented as of this encounter Visit Diagnoses Not on filedocumented in this encounter Care Teams Slag Expander Relationship Specialty Start Date End Date Bianca Salazar FNP [address] [place] [address] PCP - General Family Medicine 07/20/22 documented as of this encounter
--- OUTSIDE RECORDS SUMMARY | 2025-05-04 12:45 | XMS_ITS | Encounter Summary ---
Author Organization [employer] Address [address] [place] [address] [address] [place] [address] Care Team Providers Care Slat Pickler Name Role Phone Bianca Salazar Primary Care Provider +1 [phone] Encounter Details Date Type Department Care Team [...] Description 05/12/2025 9:00 AM EDT Clinical Support [address] [address] 06/11/2025 11:00 AM EDT Office Visit [facility] [address] [place] [address] Bianca Salazar FNP [address] [place] [address] documented as of this encounter Visit Diagnoses Not on filedocumented in this encounter Care Teams Slat Pickler Relationship Specialty Start Date End Date Bianca Salazar FNP [address] [place] [address] PCP - General Family Medicine 07/20/22 documented as of this encounter
--- OUTSIDE RECORDS SUMMARY | 2025-05-04 12:45 | XMS_ITS | Encounter Summary ---
Author Organization [employer] Address [address] [facility] [address] [place] [address] Care Team Providers Care Motion Picture Critic Name Role Phone Bianca Salazar Primary Care Provider +1 [phone] Encounter Details Date Type Department Care Team (Late st Contact Info) Description 10/24/2024 Orders Only [facility] [address] [place] [address] Bianca Salazar FNP [address] [place], [place] [id number] Social History Tobacco Use Types Packs/Day Years [...] Description 05/12/2025 9:00 AM EDT Clinical Support [address] [address] 06/11/2025 11:00 AM EDT Office Visit [address] [address] Bianca Salazar FNP [address] [place] [address] documented as of this encounter Procedures Procedure [...] (Negative) Lay letter mailed to patient WSN: [id number] Ordering Physician: Bianca Salazar Dictated By: Steffen Diaz MD Dictated Date/Time: 10/27/24 2:27 pm Reviewed By: Steffen Diaz MD Signed By: Steffen Diaz MD Signed Date/Time: 10/27/24 2:27 pm Transcribed By: BILLY Security Advisor Date/Time: 10/27/24 2:25 pm Birads: Procedure Note Donotuseinterpreter, [...] (Negative) Lay letter mailed to patient WSN: [id number] Ordering Physician: Bianca Salazar Dictated By: Steffen Diaz MD Dictated Date/Time: 10/27/24 2:27 pm Reviewed By: Steffen Diaz MD Signed By: tSeffen Diaz MD Signed Date/Time: 10/27/24 2:27 pm Transcribed By: BILLY Security Advisor Date/Time: 10/27/24 2:25 pm Birads: Bianca CARDOSOP IMG BI PROCEDURES Final R esult * Comprehensive Metabolic Panel (10/20/2024 9:43 AM EST) Blood Venous blood specimen / Unknown Bianca LYLES LAB BLOOD ORDERABLES Michelle l Result documented in this encounter Visit Diagnoses Not on filedocumented in this encounter Care Teams Motion Picture Critic Relationship Specialty Start Date End Date Bianca aSlazar FNP [address] [place] [address] PCP - General Family Medicine 07/20/22 documented as of this encounter
--- OUTSIDE RECORDS SUMMARY | 2025-05-04 12:45 | XMS_ITS | Encounter Summary ---
Author Organization [employer] Address [address] [place] [address] [address] [address] Care Team Providers Care Supervisor [employer] Name Role Phone Bianca Salazar Primary Care Provider [phone] [phone] Encounter Details Date Type Department Care Team [...] Description 05/12/2025 9:00 AM EDT Clinical Support [facility] [address] [place] [address] 06/11/2025 11:00 AM EDT Office Visit [facility] [address] [place] [address] Bianca Salazar FNP [address] [place] [address] documented as of this encounter Visit Diagnoses Not on filedocumented in this encounter Care Teams Supervisor [employer] Relationship Specialty Start Date End Date Bianca Salazar FNP [address] [place] [address] PCP - General Family Medicine 07/20/22 documented as of this encounter
--- OUTSIDE RECORDS SUMMARY | 2025-05-04 12:45 | XMS_ITS | Encounter Summary ---
Author Organization [employer] Address [address] [place] [address] Care Team Providers Care Administrative Office Specialist Name Role Phone Bianca Salazar SILK EXAMINER Primary Care Provider [phone] [phone] Encounter Details Date Type Department Care Team (Late st Contact Info) Description 04/24/2024 Orders Only [facility] [address] [place] [address] Bianca Salazar FNP [address] [place], [place] [phone] Scalp psoriasis Social History Tobacco Use Types [...] Description 05/12/2025 9:00 AM EDT Clinical Support [address] [address] 06/11/2025 11:00 AM EDT Office Visit [address] [address] Bianca Salazar FNP [address] [place] [address] documented as of this encounter Procedures Procedure Name Priority Date/Time Associated Diagnosis Comments AMB REFERRAL TO DERMATOLOGY Routine 11/26/2023 Scalp psoriasis documented in this encounter Results * Referral to Dermatology (11/26/2023) Bianca LYLES OUTPATIENT REFERRAL ORDER JOEL Final Result documented in this encounter Visit Diagnoses Diagnosis Scalp psoriasis Other psoriasis documented in this encounter Care Teams Administrative Office Specialist Relationship Specialty Start Date End Date Bianca Salazar FNP [address] [place] [address] PCP - General Family Medicine 07/20/22 documented as of this encounter
--- OUTSIDE RECORDS SUMMARY | 2025-05-04 12:45 | XMS_ITS | Encounter Summary ---
Author Organization [employer] Address [address] [place] [address] [address] [address] Care Team Providers Care Lighting Director Name Role Phone Bianca Salazar Primary Care Provider +1 [phone] Encounter Details Date Type Department Care Team [...] Description 05/12/2025 9:00 AM EDT Clinical Support [facility] [address] [place] [address] 06/11/2025 11:00 AM EDT Office Visit [facility] [address] [place] [address] Bianca Salazar FNP [address] [place] [address] documented as of this encounter Visit Diagnoses Not on filedocumented in this encounter Care Teams Lighting Director Relationship Specialty Start Date End Date Bianca Salazar FNP [address] [place] [address] PCP - General Family Medicine 07/20/22 documented as of this encounter
== END 2025-05-04 10:19 | disposition home or self-care (01) ==
LOC: HO.HSMS 09:53
PROVIDERS: PCP Nurse Practitioner Family; Visit Provider Psychiatry & Neurology Neurology
DX: G43.719 Chronic migraine without aura, intractable, without status migrainosus (principal)
CPT/HCPCS: 64615

== ENCOUNTER → 2025-05-04 09:52 | Outpatient (BNVA) | payer MEDICARE, MEDICAID, SELFPAY | PROVIDERS: PCP Nurse Practitioner Family; Visit Provider Psychiatry & Neurology Neurology | DX: G43.719 Chronic migraine without aura, intractable, without status migrainosus (principal) | CPT/HCPCS: 64615; 99211; J0585 ==